=== PATIENT | female | born 1980 | race Caucasian/White ===

== ENCOUNTER → 2019-01-11 | Outpatient (CLI) | payer OTHER ==
--- NOTE | 2019-01-11 08:59 | MM ---
Reason for exam: screening (asymptomatic). Baseline mammogram. History: Patient is nulliparous. Family history of breast cancer in maternal grandmother at age 39, breast cancer in mother at age 40, and breast cancer in sister at age 39. Took hormonal contraceptives beginning at age 22. Physical Findings: Nurse did not find any significant physical abnormalities on exam. MG 3D Screening Mammo W/Cad Bilateral CC and MLO view(s) were taken. The breast tissue is heterogeneously dense. This may lower the sensitivity of mammography. There is an 8mm group of calcifications in the lower outer quadrant at middle depth and right calcifications in the central upper and central lower breast. These results were verbally communicated with the patient and result sheet given to the patient on 01/11/19. ASSESSMENT: Incomplete: need additional imaging evaluation, BI-RAD 0 RECOMMENDATION: Special view mammogram of both breasts.
--- NOTE | 2019-01-11 09:08 | MM ---
Reason for exam: additional evaluation requested from abnormal screening. History: Patient is nulliparous. Family history of breast cancer in maternal grandmother at age 39, breast cancer in mother at age 40, and breast cancer in sister at age 39. Took hormonal contraceptives beginning at age 22. Physical Findings: Breast exam preformed at baseline screening. MG 3D Work Up W/Cad DEE Bilateral CC with magnification and ML with magnification view(s) were taken. The breast tissue is heterogeneously dense. This may lower the sensitivity of mammography. There are heterogenous left upper outer quadrant calcifications measuring 8mm that are indeterminate. Surgical biopsy recommended as these are just deep to the skin. Right calcifications appear as rounded, possible fat necrosis on upper outer quadrant and rounded in the central lower right breast. 6 month follow up for both right groups. These results were verbally communicated with the patient and result sheet given to the patient on 01/11/19. ASSESSMENT: Suspicious, BI-RAD 4 RECOMMENDATION: Surgical consultation and localization and excision of the right breast. Called Dr. Keith with mammographic findings and has scheduled an appointment for the patient for 02/01/19 at 12:[address] Joyce. PRELIMINARY REPORT CALLED AND FAXED TO DR. JOYCE ON 01/11/19.
== END | disposition home or self-care (01) ==
LOC: RADMAMWWP 06:55
PROVIDERS: ATTEND Obstetrics & Gynecology
DX: Z12.31 Encounter for screening mammogram for malignant neoplasm of breast (principal); R92.8 Other abnormal and inconclusive findings on diagnostic imaging of breast; Z80.3 Family history of malignant neoplasm of breast
CPT/HCPCS: 77062; 77063; 77066; 77067

== ENCOUNTER → 2019-02-01 | Outpatient (CLI) | payer OTHER ==
[2019-02-01 12:20] VITALS: BP 147/93; PULSE 64; RESP 16; TEMP 98.2; BMI 24.5
--- NOTE | 2019-02-01 12:49 | P.GSHP ---
History of Present Illness H&P Date: 02/01/19 Chief Complaint: abnormal mammogram of the left breast Shannan is a 38-year-old white female who underwent a routine baseline screening mammogram on following this mammogram was recommended that bilateral additional views be obtained and additional views there was noted to be an 8 mm group of calcifications in the outer quadrant and middle depth of the left breast and left breast calcifications in the central upper and central lower breast. The left breast calcifications were noted to be heterogeneous and close to the skin these were indeterminant and surgical biopsy was recommended. On the right breast it was felt that these were most likely the possible fat necrosis and six-month follow-up was recommended for both groups of calcification in the right breast. Shannan does not feel any masses or nodules in her breasts. She does not complain any breast pain. She does not have any abnormal nipple discharge. She has no history of any trauma or infection in the breast. The patient drinks coffee throughout the day. The patient does not smoke and she is not exposed to secondhand smoke. She has chocolate occasionally. The patient used to use control pulses night use them for several years. She does not take hormones. Her menstrual periods are regular. In 2003 her mother tested for BRACA and negative, both sisters tested the one that had cancer tested negative for any abnormalities, a second sister without cancer tested positive for PALB2. The patient is being tested for PALB 2 as well. Lula risk model evaluation was run. Patient's 5 year risk of developing breast cancer is 1.2% compared with 0.3% for average 36-year-old Lifetime risk of breast cancer is 31.2% compared with 12.5% risk for average 36-year-old woman Family History: maternal grandmother: 39 breast cancer, of mets. maternal grandfather: multiple myloma paternal grandmother: leukemai paternal grandfather: pancreatic mother: breast cancer at 48 sister: lymphoma as a teenager, breast cancer at 39, doing well father: colon cancer paternal uncle: lung cancer Hormonal History: Menarche: 14 G0 periods regular, started yesterday BCP: used for 5 years, stopped 5 years ago hormones: none Past surgical history: 1. Laparotomy left ovary and fallopian tube removed 2. Lasic eye surgery Medical history: Negative Social history: Smoking: Negative alcohol: Occasional Drugs:none - Constitutional Constitutional: Denies chills, Denies fever - EENT Eyes: denies blurred vision, denies pain Ears: deny: decreased hearing, tinnitus Ears, nose, mouth and throat: Denies headache, Denies sore throat - Breasts Breasts: bilateral: as per HPI - Cardiovascular Cardiovascular: Denies chest pain, Denies shortness of breath - Respiratory Respiratory: Denies cough, Denies 7 - Gastrointestinal Gastrointestinal: Denies abdominal pain, Denies diarrhea, Denies nausea, Denies vomiting - Menstruation Menstruation: Reports period normal - Musculoskeletal Musculoskeletal: Denies myalgias - Integumentary Integumentary: Denies pruritus, Denies rash - Neurological Neurological: Denies numbness, Denies weakness - Psychiatric Psychiatric: Denies anxiety, Denies depression - Endocrine Comment: hypothyroid - Hematologic/Lymphatic Comment: none - Allergic/Immunologic Allergic/Immunologic: Reports as per HPI Past Medical History History of Any Multi-Drug Resistant Organisms: None Reported Smoking Status: Never smoker Medications and Allergies Home Medications Medication Instructions Recorded Confirmed Type Ibuprofen 200 mg PO DAILY PRN 02/01/19 02/01/19 History Levothyroxine Sodium [Synthroid] 100 mcg PO DAILY 02/01/19 02/01/19 History Allergies Allergy/AdvReac Type Severity Reaction Status Date / Time No Known Allergies Allergy Unverified 02/01/19 12:15 Surgical - Exam Vital Signs Temp Pulse Resp BP Pulse Ox 98.2 F 64 16 147/93 100 02/01/19 12:17 02/01/19 12:17 02/01/19 12:17 02/01/19 12:17 02/01/19 12:17 BMI 24.5 - General well developed, well nourished, no distress - Eyes normal ocular movement - ENT no hearing loss, no congestion - Neck no masses, trachea midline - Respiratory normal respiratory effort, clear to auscultation - Cardiovascular Rhythm: regular Heart Sounds: normal: S1, S2 - Abdomen Abdomen: soft, non tender, no guarding, no rigid, no rebound - Integumentary normal turgor - Neurologic no disoriented, no combative - Musculoskeletal normal gait, normal posture - Psychiatric oriented to time, oriented to person, oriented to place, speech is normal, memory intact breast exam: Right breast: Multiple positional examined fibrocystic changes, no dominant masses or nodules of concern Right axilla: No adenopathy of concern Left breast: Multiple positional exam no dominant masses or nodules of concern Left axilla: No adenopathy of concern Results Mammogram results reviewed Assessment and Plan Assessment: Impression: 1. Radiographic abnormality bilateral breast 2. Fibrocystic breast changes 3. Family history of breast cancer 4. Family history of cancer 6. High risk for breast cancer sister with genetic mutation patient presently being tested 7. Hypothyroid Risks and benefits of the procedure discussed with the patient and his is going to be scheduled for the near future. Plan: 1. Needle localization and excisional biopsy of superficial heterogeneous calcifications in the left breast 2. Repeat right breast and left breast mammogram in 6 months time 3. Genetic counseling 4. High risk breast cancer noted on Lula model consider chemoprevention await further recommendation until biopsy of left breast is performed Cc: Dr. Keith, DR. Dover
== END | disposition home or self-care (01) ==
LOC: WWCWWP 11:58
PROVIDERS: ATTEND Surgery
DX: Z53.9 Procedure and treatment not carried out, unspecified reason (principal)

== ENCOUNTER 2019-03-19 08:20 | Day surgery (SDC) | payer OTHER ==
[2019-03-18 12:21] VITALS: BMI 25.0
[~2019-03-19 08:20] MED LIST: DEXAMETHASONE SOD PHOSPHATE 10 MG/ML 1 ML VIAL IV ONE; HEPARIN SODIUM,PORCINE 5,000 UNIT/ML 1 ML VIAL SQ ONE; HYDROmorphone 0.5 MG/0.5 ML SYRINGE IVP PRN; MIDAZOLAM 2 MG/2 ML VIAL IV PRN; Pre Op ABX Message 1 EACH MISC MISCELLANE ONE; SCOPOLAMINE 1.5MG/72HR PATCH TRANSDERM ONE
[2019-03-19] MEDS ORDERED: ALPRAZolam 0.5 MG TAB PO ONE (09:18)
[2019-03-19] MEDS ORDERED: LIDOCAINE 1% 20 ML VIAL (10MG/ML) FOR IV START INTRADERMA ONE (09:34)
[2019-03-19] MEDS: LACTATED RINGERS 1,000 ML IV SCH ×2 (09:36→09:55)
[2019-03-19] MEDS ORDERED: LIDOCAINE 1% INJ 10MG/ML (20 ML MDV) SQ ONE ×4 (10:36→15:03)
[2019-03-19 10:41] VITALS: RESP 16
[2019-03-19] MEDS: ONDANSETRON 4 MG/2 ML VIAL IVP ONE ×2 (11:42→15:42)
[2019-03-19] MEDS ORDERED: PROPOFOL 10 MG/ML 20 ML VIAL IV ONE (13:27)
[2019-03-19] MEDS ORDERED: fentaNYL (PF) 50 MCG/ML 2 ML AMP ONE (13:27)
[2019-03-19] MEDS ORDERED: ePHEDrine SULFATE/0.9% NACL/PF 50 MG/5 ML SYRINGE IV ONE (13:27)
[2019-03-19] MEDS ORDERED: SUCCINYLCHOLINE CHLORIDE 100 MG/5 ML SYR IV ONE (13:27)
[2019-03-19] MEDS ORDERED: MIDAZOLAM 2 MG/2 ML VIAL ONE (13:27)
[2019-03-19] MEDS ORDERED: diphenhydrAMINE 50 MG/ML 1 ML VIAL ONE (13:27)
[2019-03-19] MEDS ORDERED: LIDOCAINE 1% INJ 10MG/ML (20 ML MDV) ONE (13:27)
[2019-03-19] MEDS ORDERED: LACTATED RINGERS 1,000 ML IV ONE (14:12)
--- NOTE | 2019-03-19 15:25 | P.OP ---
Date of Procedure: 03/19/19 Preoperative Diagnosis: Microcalcifications of concern in the left breast Postoperative Diagnosis: Same Procedure(s) Performed: needle localization excisional biopsy of concern left breast Anesthesia: MISSY Surgeon: Maira Joyce Estimated Blood Loss (ml): 10 IV fluids (ml): 1,200 Pathology: other (Breast tissue) Condition: stable Disposition: PACU Indications for Procedure: Microcalcifications of concern in the left breast Operative Findings: Dense breast tissue Description of Procedure: Needle Localization of the area of concern in the left breast was preformed. The patient was brought to the operating room. Following induction of general anesthesia the breast was prepped and draped in a sterile fashion. Periareolar incision was made and carried down to the shaft of the needle. Surrounding tissue was excised. The lesion appeared to be very superficial, the specimen was taken from directly under the skin around the needle. Radiograph of the specimen was performed after the specimen was painted for orientation. The specimen was reviewed with the radiologist and although the area all around the needle was removed, we counld not see with certainly that definite calcificati ons were identified. Therefore additional tissue was obtained surrounding the cavity. This was painted for orientation. Radiograph of the second specimen also did not reveal specific calcifications of concern. At this point it was felt that the procedure should be terminated as certainly the area of concern had been sampled. We will await pathology results. The cavity was well irrigated. Hemostasis was attained using the electrocautery device. Powderized Surgicel was placed. The wound was irrigated. No evidence of bleeding was identified. Titanium clips were placed to alecia the cavity. The deeper tissues were closed using 3-0 Vicryl suture. The skin was closed using 4-0 Monocryl. The patient tolerated the procedure in stable condition. All instrument and sponge counts were correct. Again radiograph of both specimens did not reveal specific calcifications however, radiograph of the specimen certainly revealed that the tissue surrounding the needle was in the location of concern.
--- NOTE | 2019-03-19 15:26 | P.DS ---
Providers Attending physician: Maira Joyce Primary care physician: Mitchel Dover Plan - Discharge Summary Discharge Rx Participant: No New Discharge Prescriptions: No Action Levothyroxine Sodium [Synthroid] 100 mcg PO DAILY Ibuprofen 200 mg PO DAILY PRN PRN Reason: Pain Discharge Medication List Ibuprofen 200 mg PO DAILY PRN 02/01/19 [History] Levothyroxine Sodium [Synthroid] 100 mcg PO DAILY 02/01/19 [History] Follow up Appointment(s)/Referral(s): Maira Joyce MD [STAFF PHYSICIAN] - 1 Week Activity/Diet/Wound Care/Special Instructions: do not drive for [address] if taking narcotic pain medication may shower after 48 hours wear bra at all times Discharge Disposition: HOME SELF-CARE
[2019-03-19 15:32] VITALS: TEMP 97.1
--- NOTE | 2019-03-19 15:59 | MM ---
EXAMINATION TYPE: MG pre op needle loc LT, MG surgical specimen LT DATE OF EXAM: 03/19/2019 COMPARISON: Bilateral mammograms dated 01/11/2019 CLINICAL HISTORY: Superficial left breast calcifications for which needle localization was recommende d. TECHNIQUE: Needle localization with wire placement and surgical excision of area of concern in the le ft breast. FINDINGS: The procedure of needle localization with wire placement and than surgical excision was exp lained to the patient. Benefits, alternatives, and risks were discussed. An informed consent was th en obtained. Preprocedural timeout was performed. The shortest pathway for procedure was chosen. Shortest pathway was lateral medial approach. The ove rlying skin was prepped and draped in usual sterile fashion. 10 cc of 1% lidocaine was used as anesth etic into the skin and subcutaneous tissue up to the level of area of concern. A 5 cm needle was use d. It was placed via a lateral to medial approach under mammographic guidance. Subsequent 90 degree s mammogram show the needle to be in satisfactory position relative to the targeted area. At this po int, wire was placed and the needle was withdrawn. The wire was fixed to patient's skin. Images wer e marked for surgeon. The patient tolerated the procedure well without any immediate complication. The patient was kept in the radiology department for short stay after the procedure and then taken to surgery for surgical e xcision. Targeted calcifications are only questionably present within the specimen and wire are iden tified in specimen mammogram. This was discussed with the surgeon at approximately 1440 p.m. The pat ient was kept in hospital for short stay after the procedure and then discharged home in stable condi tion. IMPRESSION: Uncomplicated needle localization with wire placement and surgical excision of suspicious group of calcifications in the left breast, full pathology results to follow. Calcifications are onl y questionably present in the specimen radiograph.
[2019-03-19 16:25] VITALS: BP 113/73; PULSE 85
--- NOTE | 2019-03-22 12:54 | P.PN ---
Progress Note - Text Chief complaint: Abnormal mammogram of the left breast Shannan is a 38-year-old white female who underwent a routine baseline screening ma mmogram on following this mammogram was recommended that bilateral additional views be obtained and additional views there was noted to be an 8 mm group of calcifications in the outer quadrant and middle depth of the left breast and right breast calcifications in the upper outer and central lower breast. The left breast calcifications were noted to be heterogeneous and close to the skin these were indeterminant and surgical biopsy was recommended. On the right breast it was felt that these were most likely the possible fat necrosis and six-month follow-up was recommended for both groups of calcification in the right breast. Shannan does not feel any masses or nodules in her breasts. She does not complain any breast pain. She does not have any abnormal nipple discharge. She has no history of any trauma or infection in the breast. The patient drinks coffee throughout the day. The patient does not smoke and she is not exposed to secondhand smoke. She has chocolate occasionally. The patient used to use control pulses night use them for several years. She does not take hormones. Her menstrual periods are regular. In 2003 her mother tested for BRACA and negative, both sisters tested the one that had cancer tested negative for any abnormalities, a second sister without cancer tested positive for PALB2. The patient is being tested for PALB 2 as well. Lula risk model evaluation was run. Patient's 5 year risk of developing breast cancer is 1.2% compared with 0.3% for average 36-year-old Lifetime risk of breast cancer is 31.2% compared with 12.5% risk for average 36-year-old woman Family History: maternal grandmother: 39 breast cancer, of mets. maternal grandfather: multiple myloma paternal grandmother: leukemai paternal grandfather: pancreatic mother: breast cancer at 48 sister: lymphoma as a teenager, breast cancer at 39, doing well father: colon cancer paternal uncle: lung cancer Hormonal History: Menarche: 14 G0 periods regular, started yesterday BCP: used for 5 years, stopped 5 years ago hormones: none Past surgical history: 1. Laparotomy left ovary and fallopian tube removed 2. Lasic eye surgery Medical history: Negative Social history: Smoking: Negative alcohol: Occasional Drugs:none - Constitutional Constitutional: Denies chills, Denies fever - EENT Eyes: denies blurred vision, denies pain Ears: deny: decreased hearing, tinnitus Ears, nose, mouth and throat: Denies headache, Denies sore throat - Breasts Breasts: bilateral: as per HPI - Cardiovascular Cardiovascular: Denies chest pain, Denies shortness of breath - Respiratory Respiratory: Denies cough, Denies 7 - Gastrointestinal Gastrointestinal: Denies abdominal pain, Denies diarrhea, Denies nausea, Denies vomiting - Menstruation Menstruation: Reports period normal - Musculoskeletal Musculoskeletal: Denies myalgias - Integumentary Integumentary: Denies pruritus, Denies rash - Neurological Neurological: Denies numbness, Denies weakness - Psychiatric Psychiatric: Denies anxiety, Denies depression - Endocrine Comment: hypothyroid - Hematologic/Lymphatic Comment: none - Allergic/Immunologic Allergic/Immunologic: Reports as per HPI Past Medical History History of Any Multi-Drug Resistant Organisms: None Reported Smoking Status: Never smoker Medications and Allergies Home Medications Medication Instructions Recorded Confirmed Type Ibuprofen 200 mg PO DAILY PRN 02/01/19 02/01/19 History Levothyroxine Sodium [Synthroid] 100 mcg PO DAILY 02/01/19 02/01/19 History Allergies Allergy/AdvReac Type Severity Reaction Status Date / Time No Known Allergies Allergy Unverified 02/01/19 12:15 Surgical - Exam Vital Signs BMI 24.5 - General well developed, well nourished, no distress - Eyes normal ocular movement - ENT no hearing loss, no congestion - Neck no masses, trachea midline - Respiratory normal respiratory effort, clear to auscultation - Cardiovascular Rhythm: regular Heart Sounds: normal: S1, S2 - Abdomen Abdomen: soft, non tender, no guarding, no rigid, no rebound - Integumentary normal turgor - Neurologic no disoriented, no combative - Musculoskeletal normal gait, normal posture - Psychiatric oriented to time, oriented to person, oriented to place, speech is normal, m chloe intact breast exam: Right breast: Multiple positional examined fibrocystic changes, no dominant masses or nodules of concern Right axilla: No adenopathy of concern Left breast: Multiple positional exam no dominant masses or nodules of concern Left axilla: No adenopathy of concern Results Mammogram results reviewed Assessment and Plan Assessment: Impression: 1. Radiographic abnormality bilateral breast 2. Fibrocystic breast changes 3. Family history of breast cancer 4. Family history of cancer 6. High risk for breast cancer sister with genetic mutation patient presently being tested 7. Hypothyroid Risks and benefits of the procedure discussed with the patient and his is going to be scheduled for the near future. Plan: 1. Needle localization and excisional biopsy of superficial heterogeneous calcifications in the left breast 2. Repeat right breast and left breast mammogram in 6 months time 3. Genetic counseling 4. High risk breast cancer noted on Lula model consider chemoprevention await further recommendation until biopsy of left breast is performed Cc: Dr. Keith, DR. Dover
== END 2019-03-19 17:16 | disposition home or self-care (01) ==
LOC: OR 08:20
PROVIDERS: ATTEND Surgery
DX: N62 Hypertrophy of breast (principal); N60.82 Other benign mammary dysplasias of left breast; N60.12 Diffuse cystic mastopathy of left breast; R92.0 Mammographic microcalcification found on diagnostic imaging of breast; J45.909 Unspecified asthma, uncomplicated; E07.9 Disorder of thyroid, unspecified; Z79.890 Hormone replacement therapy
CPT/HCPCS: 19125; 81025; 88307; 76098; 19281; J2250; J1200; J1644; J1100; J2405; J2001; J3010; J0330; J2704; J1170

== ENCOUNTER → 2019-04-05 | Outpatient (CLI) | payer OTHER ==
[2019-04-05 16:24] VITALS: BP 126/87; PULSE 79; RESP 18; TEMP 97.9
--- NOTE | 2019-04-05 16:27 | P.PN ---
Subjective Progress Note Date: 04/05/19 Principal diagnosis: post op needle localization excision left breast Shannan is a 38-year-old white female status post needle local excisional biopsy on [id number] for microcalcifications in the left breast. The specimen did not reveal the microcalcifications. Pathology revealed proliferative fibrocystic changes including focal complex sclerosing lesion/radial scar with usual type ductal hyperplasia, fibrosis, cyst, and apocrine metaplasia. I have called the pathologist and they did not note calcifications in the specimen. I have discussed the case with radiology and there is a question as the calcifications are very superficial as to whether they may actually be in the skin. The patient postprocedure developed some erythema at approximately 48 hours which extended up to the area of the chest but resolved. No complaints at this time. Physical exam: Incision clean and dry Lungs: Clear Heart: Regular rate and rhythm Impression: 1. Patient status post needle local excisional biopsy left breast for microcalcifications uncertain as to whether the area of concern was adequately sampled as microcalcifications were not seen and the radiographs specimen nor in the pathology specimen 2. Strong family history of cancer Plan: 1. Repeat left breast mammogram in 3 months with appointment to follow for residual microcalcifications 2. Genetic testing patient is going to be seen later this month she did have PALB testing and was negative CC: DR. Dover
== END ==
LOC: WWCWWP 16:09
PROVIDERS: ATTEND Surgery
DX: Z53.9 Procedure and treatment not carried out, unspecified reason (principal)

== ENCOUNTER → 2019-05-30 | Outpatient (CLI) | payer OTHER ==
[2019-05-30 16:43] VITALS: BP 132/81; PULSE 55; RESP 16; TEMP 97.9
--- NOTE | 2019-05-30 17:00 | P.PN ---
Duane Campbell is a 38-year-old white female status post needle local excisional biopsy on [id number] for microcalcifications in the left breast. The specimen did not reveal the microcalcifications. Pathology revealed proliferative fibrocystic changes including focal complex sclerosing lesion/radial scar with usual type ductal hyperplasia, fibrosis, cyst, and apocrine metaplasia. I have called the pathologist and they did not note calcifications in the specimen. I have discussed the case with radiology and there is a question as the calcifications are very superficial as to whether they may actually be in the skin. The patient postprocedure developed some erythema at approximately 48 hours which extended up to the area of the chest but since resolved. The patient approximately 2 weeks ago states that she noted a area of nodularity in the contralateral/right breast. She is uncertain as to why this area may feel different. No nipple discharge or skin changes. Objective - Vital Signs Vital signs: Vital Signs Temp 97.9 F 05/30/19 16:40 Pulse 55 L 05/30/19 16:40 Resp 16 05/30/19 16:40 BP 132/81 05/30/19 16:40 Pulse Ox 100 05/30/19 16:40 Intake & Output 05/29/19 05/30/19 05/30/19 18:59 06:59 18:59 Weight 65.771 kg - Exam BMI 24.1 - Constitutional General appearance: Present: average body habitus - EENT Eyes: Present: EOMI ENT: Present: hearing grossly normal - Neck Neck: Present: normal ROM - Respiratory Respiratory: bilateral: CTA - Cardiovascular Rhythm: regular Heart sounds: normal: S1, S2 - Integumentary Integumentary: Present: normal turgor - Musculoskeletal Musculoskeletal: Present: gait normal - Psychiatric Psychiatric: Present: A&O x's 3, appropriate affect, intact judgment & insight - Additional findings Additional findings: Breast examination/right breast: Right breast: Multi-positional exam no dominant masses or nodules of concern, fibrocystic changes, particularly attention to the patient is area of concern does not reveal any dominant mass or nodule of concern Right axilla: No adenopathy of concern Inspection: No skin lesions of concern Assessment and Plan Assessment: Impression/Plan: 1. Fibrocystic breast changes 2. Patient had a left breast biopsy done for microcalcifications uncertain as to whether these were adequately sampled as they were not seen in pathology radiology specimens patient is going to have repeat left breast mammogram done in June with physician exam at that time 3. We'll follow her for exam of both breast in June Time with Patient: Less than 30
== END | disposition home or self-care (01) ==
LOC: WWCWWP 16:17
PROVIDERS: ATTEND Surgery
DX: Z53.9 Procedure and treatment not carried out, unspecified reason (principal)

== ENCOUNTER → 2019-07-08 | Outpatient (CLI) | payer OTHER ==
--- NOTE | 2019-07-08 10:11 | MM ---
Reason for exam: follow-up at short interval from prior study. Last mammogram was performed 6 months ago. History: Patient is nulliparous. Family history of breast cancer in maternal grandmother at age 39, breast cancer in mother at age 40, and breast cancer in sister at age 39. Benign MG pre op needle loc LT of the left breast, March 19, 2019. Took hormonal contraceptives beginning at age 22. Physical Findings: Nurse did not find any significant physical abnormalities on exam. MG 3D Diag Mammo W/Cad DEE Bilateral CC, MLO, ML with magnification, and CC with magnification view(s) were taken. ML view(s) were taken of the left breast. Prior study comparison: January 11, 2019, bilateral MG 3d work up w/cad DEE. January 11, 2019, bilateral MG 3d screening mammo w/cad. The breast tissue is heterogeneously dense. This may lower the sensitivity of mammography. The right upper outer quadrant calcifications at middle depth again appear rounded on CC and likely represent developing fat necrosis. Magnifications views on the left demonstrate no residual calcifications at the original left upper outer quadrant anterior depth site of concern for which needle localization was performed. Few scattered left calcifications are seen, benign. Left upper outer quadrant focal asymmetry next to the surgical site resolves on additional magnification views and lateral. These results were verbally communicated with the patient and result sheet given to the patient on 07/08/19. ASSESSMENT: Probably benign, BI-RAD 3 RECOMMENDATION: Follow-up diagnostic mammogram of both breasts in 6 months.
== END | disposition home or self-care (01) ==
LOC: RADMAMWWP 07:40
PROVIDERS: ATTEND Surgery
DX: R92.8 Other abnormal and inconclusive findings on diagnostic imaging of breast (principal)
CPT/HCPCS: 77062; 77066

== ENCOUNTER → 2019-07-18 | Outpatient (CLI) | payer OTHER ==
[2019-07-18 16:31] VITALS: BP 130/84; PULSE 63; RESP 18; TEMP 98
--- NOTE | 2019-07-18 16:52 | P.PN ---
Subjective Progress Note Date: 07/18/19 Principal diagnosis: Mammographic abnormality bilateral breast BIRADS 3 Shannan is a 38-year-old white female status post needle local excisional biopsy on [id number] for microcalcifications in the left breast. The specimen did not reveal the microcalcifications. Pathology revealed proliferative fibrocystic changes including focal complex sclerosing lesion/radial scar with usual type ductal hyperplasia, fibrosis, cyst, and apocrine metaplasia. I have called the pathologist and they did not note calcifications in the specimen. I have discussed the case with radiology and there is a question as the calcifications are very superficial as to whether they may actually be in the skin. The patient postprocedure developed some erythema at approximately 48 hours which extended up to the area of the chest but since resolved. The patient now states that she noted a area of nodularity in the contralateral/right breast. She is uncertain as to why this area may feel different. No nipple discharge or skin changes. She had bilateral mammograms performed on 3919. This revealed heterogeneously dense breast tissue. Magnification views on the left did not demonstrate any residual calcifications at the original left upper outer quadrant anterior depth site of concern for which needle local had been performed. The patient in the right breast had calcifications at middle depth again which appeared rounded and likely represent fat necrosis. The recommendation was benign thyroid cyst. Follow-up diagnostic mammogram of both breasts in 6 months. Objective - Vital Signs Vital signs: Vital Signs Temp 98.0 F 07/18/19 16:26 Pulse 63 07/18/19 16:26 Resp 18 07/18/19 16:26 BP 130/84 07/18/19 16:26 Pulse Ox 100 07/18/19 16:26 Intake & Output 07/17/19 07/18/19 07/18/19 18:59 06:59 18:59 Weight 63.503 kg - Exam BMI 23.3 - Constitutional General appearance: Present: no acute distress - EENT Eyes: Present: EOMI ENT: Present: hearing grossly normal - Neck Neck: Present: normal ROM - Respiratory Respiratory: bilateral: CTA - Cardiovascular Rhythm: regular Heart sounds: normal: S1, S2 - Gastrointestinal General gastrointestinal: Present: normal bowel sounds, soft - Integumentary Integumentary: Present: normal turgor - Musculoskeletal Musculoskeletal: Present: gait normal - Psychiatric Psychiatric: Present: A&O x's 3, appropriate affect, intact judgment & insight - Additional findings Additional findings: Breast exam: BRA size: 34C Inspection: Well-healed scar left breast no skin changes of concern otherwise Palpation: Right breast: multipositional exam no dominant mass or nodules of concern, the area of concern that the patient has in the right breast appears to be fibroglandular tissue Right axilla: No adenopathy of concern Left breast: Multi-positional exam no dominant masses or nodules of concern Left axilla: No adenopathy of concern Assessment and Plan Assessment: Impression: 1. Bilateral fibrocystic breast changes 2. Mammographic changes bilaterally at 3 bilateral Plan: 1. Bilateral mammogram and physician exam in 6 months CC: Dr. Dover encounter 15 minutes > 50% of time in planing adn counselling Time with Patient: Less than 30
== END | disposition home or self-care (01) ==
LOC: WWCWWP 16:20
PROVIDERS: ATTEND Surgery
DX: Z53.9 Procedure and treatment not carried out, unspecified reason (principal)

== ENCOUNTER → 2020-01-07 | Outpatient (CLI) | payer OTHER ==
--- NOTE | 2020-01-07 14:02 | MM ---
Reason for exam: follow-up at short interval from prior study. Last mammogram was performed 6 months ago. History: Patient is nulliparous. Family history of breast cancer in maternal grandmother at age 39, breast cancer in mother at age 40, and breast cancer in sister at age 39. Benign MG pre op needle loc LT of the left breast, March 19, 2019. Took hormonal contraceptives beginning at age 22. Physical Findings: Nurse did not find any significant physical abnormalities on exam. MG 3D Diag Mammo W/Cad DEE Bilateral CC and MLO view(s) were taken. Prior study comparison: July 08, 2019, bilateral MG 3d diag mammo w/cad DEE. January 11, 2019, bilateral MG 3d work up w/cad DEE. The breast tissue is heterogeneously dense. This may lower the sensitivity of mammography. Finding #1: Skin thickening and architectural distortion in the upper outer quadrant, anterior position of the left breast at site of exam, presumed related to prior surgical excision. Finding #2: There are typically benign round, grouped/clustered calcifications in the right breast. Asymmetric breast tissue right medial upper aspect, stable. These results were verbally communicated with the patient and result sheet given to the patient on 01/07/20. ASSESSMENT: Probably benign, BI-RAD 3 RECOMMENDATION: Follow-up diagnostic mammogram of the left breast in 6 months.
== END | disposition home or self-care (01) ==
LOC: RADMAMWWP 13:12
PROVIDERS: ATTEND Surgery
DX: R92.8 Other abnormal and inconclusive findings on diagnostic imaging of breast (principal)
CPT/HCPCS: 77062; 77066

== ENCOUNTER → 2020-01-10 | Outpatient (CLI) | payer OTHER ==
[2020-01-10 14:06] VITALS: BP 114/68; PULSE 66; RESP 18; TEMP 97.9
--- NOTE | 2020-01-10 14:32 | P.PN ---
Subjective Progress Note Date: 01/10/20 Principal diagnosis: abnormal mammogram left breast Shannan is a 38-year-old white female who underwent a routine baseline screening mammogram on 01-07-20 this revealed skin thickening and architectural distortion in the upper outer quadrant of the left breast. In the right breast there were grouped/clustered calcifications and asymmetric breast tissue in the medial upper aspect which was felt to be stable. This was felt to be benign BIRADS 3 and follow-up diagnostic mammogram of the left breast in 6 months was recommended. She had routine screening mammogram in December 2018. following this mammogram was recommended that bilateral additional views be obtained and additional views there was noted to be an 8 mm group of calcifications in the outer quadrant and middle depth of the left breast and left breast calcifications in the central upper and central lower breast. The left breast calcifications were noted to be heterogeneous and close to the skin these were indeterminant and surgical biopsy was recommended. On the right breast it was felt that these were most likely the possible fat necrosis and six-month follow-up was recommended for both groups of calcification in the right breast. She had a needle localization and excisional biopsy an for the microcalcifications in the left breast. The specimen did not reveal the microcalcifications. Pathology revealed proliferative fibrocystic changes including focal complex sclerosing lesion/radial scar with usual type ductal hyperplasia, fibrosis, cyst, and apocrine metaplasia. At that time the case was discussed with radiology as well as pathology and it was recommended she have a repeat mammogram at 6 months. This was repeated on July 072019. This revealed heterogeneously dense breast tissue and mag views on the left did not demonstrate any residual calcifications at the original left upper [place] [id number] has repeat bilateral mammogram and repeat left breast mammogram in 6 months is recommended. Shannan does not feel any masses or nodules in her breasts. She does not complain any breast pain. She does not have any abnormal nipple discharge. She has no history of any trauma or infection in the breast. The patient drinks coffee throughout the day but this is decaff The patient does not smoke and she is not exposed to secondhand smoke. She has chocolate occasionally. BCP: no She does not take hormones. Her menstrual periods are regular. In 2003 her mother tested for BRACA and negative, both sisters tested the one that had cancer tested negative for any abnormalities, a second sister without cancer tested positive for PALB2. The patient is being tested for PALB 2 as well. Lula risk model evaluation was run. Patient's 5 year risk of developing breast cancer is 2.2% compared with 0.4% for average 36-year-old Lifetime risk of breast cancer is 36.8% compared with 12.5% risk for average 36-year-old woman Family History: maternal grandmother: 39 breast cancer, of mets. maternal grandfather: multiple myloma paternal grandmother: leukemia paternal grandfather: pancreatic mother: breast cancer at 48 sister: lymphoma as a teenager, breast cancer at 39, doing well father: colon cancer paternal uncle: lung cancer maternal uncle: kidney cancer mother: skin cancer ? type maternal aunt: basal cell cancer Hormonal History: Menarche: 14 G0 periods regular, started yesterday BCP: used for 5 years, stopped 5 years ago hormones: none Past surgical history: 1. Laparotomy left ovary and fallopian tube removed 2. Lasic eye surgery Medical history: Negative Social history: Smoking: Negative alcohol: Occasional Drugs:none - Constitutional Constitutional: Denies chills, Denies fever - EENT Eyes: denies blurred vision, denies pain Ears: deny: decreased hearing, tinnitus Ears, nose, mouth and throat: Denies headache, Denies sore throat - Breasts Breasts: bilateral: as per HPI - Cardiovascular Cardiovascular: Denies chest pain, Denies shortness of breath - Respiratory Respiratory: Denies cough - Gastrointestinal Gastrointestinal: Denies abdominal pain, Denies diarrhea, Denies nausea, Denies vomiting - Menstruation Menstruation: Reports period normal - Musculoskeletal Musculoskeletal: Denies myalgias - Integumentary Integumentary: Denies pruritus, Denies rash - Neurological Neurological: Denies numbness, Denies weakness - Psychiatric Psychiatric: Denies anxiety, Denies depression - Endocrine Comment: hypothyroid - Hematologic/Lymphatic Comment: none - Allergic/Immunologic Allergic/Immunologic: Reports as per HPI Objective - Vital Signs Vital signs: Vital Signs Temp 97.9 F 01/10/20 14:03 Pulse 66 01/10/20 14:03 Resp 18 01/10/20 14:03 BP 114/68 01/10/20 14:03 Pulse Ox 100 01/10/20 14:03 Intake & Output 09/02/1701/10/20 01/10/20 18:59 06:59 18:59 Weight 68.039 kg - Exam BMI 25 - Constitutional General appearance: Present: average body habitus - EENT Eyes: Present: EOMI ENT: Present: hearing grossly normal - Neck Neck: Present: normal ROM - Respiratory Respiratory: bilateral: CTA - Cardiovascular Rhythm: regular Heart sounds: normal: S1, S2 - Gastrointestinal General gastrointestinal: Present: normal bowel sounds, soft - Integumentary Integumentary: Present: normal turgor - Musculoskeletal Musculoskeletal: Present: gait normal - Psychiatric Psychiatric: Present: A&O x's 3, appropriate affect, intact judgment & insight - Additional findings Additional findings: breast exam: BRA 34C inspection: grade 2/3 ptosis on the right, left grade 1/2 ptosis well-healed scar Palpation: Right breast: Multi-positional exam no dominant masses or nodules of concern, fibrocystic changes Right axilla: No adenopathy of concern Left breast: Multi-positional exam no dominant masses or nodules of concern, well-healed scar fibrocystic changes Left axilla: No adenopathy of concern Assessment and Plan Assessment: Impression: 1. Radiographic skin thickening and architectural distortion upper outer quadrant of the left breast/repeat left breast mammogram in 6 months 2. Fibrocystic breast changes 3. Increased risk for breast cancer via care risk analysis 4. Family history of breast cancer Plan: 1. Repeat left breast mammogram 6 months with physician exam 2. Patient to call sooner if any questions or concerns 3. Patient given the option of seeing medical oncology for chemo-prevention of breast cancer and she has declined Cc: encounter 25 minutes, > 50% of time in planning and counselling
== END | disposition home or self-care (01) ==
LOC: WWCWWP 13:39
PROVIDERS: ATTEND Surgery
DX: Z53.9 Procedure and treatment not carried out, unspecified reason (principal)

== ENCOUNTER → 2020-07-07 | Outpatient (CLI) | payer OTHER ==
--- NOTE | 2020-07-07 09:01 | MM ---
Reason for exam: follow-up at short interval from prior study. Last mammogram was performed 6 months ago. History: Patient is nulliparous. Family history of breast cancer in maternal grandmother at age 39, breast cancer in mother at age 40, and breast cancer in sister at age 39. Benign MG pre op needle loc LT of the left breast, March 19, 2019. Took hormonal contraceptives beginning at age 22. Physical Findings: Nurse did not find any significant physical abnormalities on exam. MG 3D Diag Mammo W/Cad LT CC and MLO view(s) were taken of the left breast. Prior study comparison: January 07, 2020, bilateral MG 3d diag mammo w/cad DEE. July 08, 2019, bilateral MG 3d diag mammo w/cad DEE. The breast tissue is heterogeneously dense. This may lower the sensitivity of mammography. Finding: There is stable skin thickening and architectural distortion in the upper outer quadrant of the left breast. There is a oval, obscured lesion anterior outer aspect, increased in size. These results were verbally communicated with the patient and result sheet given to the patient on 07/07/20. ASSESSMENT: Incomplete: need additional imaging evaluation, BI-RAD 0 RECOMMENDATION: Ultrasound of the left breast.
--- NOTE | 2020-07-07 09:03 | USB ---
Reason for exam: additional evaluation requested from abnormal screening. History: Patient is nulliparous. Family history of breast cancer in maternal grandmother at age 39, breast cancer in mother at age 40, and breast cancer in sister at age 39. Benign MG pre op needle loc LT of the left breast, March 19, 2019. Took hormonal contraceptives beginning at age 22. US Breast Limited LT Left limited breast ultrasound including focal area of concern, retroareolar and axilla demonstrates no cystic or solid lesion seen. Lateral to nipple tubular dense versus scar tissue. These results were verbally communicated with the patient and result sheet given to the patient on 07/07/20. ASSESSMENT: Benign, BI-RAD 2 RECOMMENDATION: Routine screening mammogram of both breasts in 6 months. Back on schedule.
== END ==
LOC: RADMAMWWP 07:43
PROVIDERS: ATTEND Surgery
DX: R92.8 Other abnormal and inconclusive findings on diagnostic imaging of breast (principal); Z80.3 Family history of malignant neoplasm of breast
CPT/HCPCS: 77061; 77065

== ENCOUNTER → 2020-07-17 | Outpatient (CLI) | payer OTHER ==
[2020-07-17 09:56] VITALS: BP 113/73; PULSE 69; RESP 18; TEMP 98.1
--- NOTE | 2020-07-17 10:23 | P.PN ---
Subjective Progress Note Date: 07/17/20 Principal diagnosis: High risk breast cancer/screening/prior abnormal mammogram/6 month follow-up mammogram Shannan is a 39-year-old white female who underwent a routine baseline screening mammogram on 01-07-20 this revealed skin thickening and architectural distortion in the upper outer quadrant of the left breast. In the right breast there were grouped/clustered calcifications and asymmetric breast tissue in the medial upper aspect which was felt to be stable. This was felt to be benign BIRADS 3 and follow-up diagnostic mammogram of the left breast in 6 months was recommended. She had routine screening mammogram in December 2018. following this mammogram was recommended that bilateral additional views be obtained and additional views there was noted to be an 8 mm group of calcifications in the outer quadrant and middle depth of the left breast and left breast calcifications in the central upper and central lower breast. The left breast calcifications were noted to be heterogeneous and close to the skin these were indeterminant and surgical biopsy was recommended. On the right breast it was felt that these were most likely the possible fat necrosis and six-month follow-up was recommended for both groups of calcification in the right breast. She had a needle localization and excisional biopsy an for the microcalcifications in the left breast. The specimen did not reveal the microcalcifications. Pathology revealed proliferative fibrocystic changes including focal complex sclerosing lesion/radial scar with usual type ductal hyperplasia, fibrosis, cyst, and apocrine metaplasia. At that time the case was discussed with radiology as well as pathology and it was recommended she have a repeat mammogram at 6 months. This was repeated on July 072019. This revealed heterogeneously dense breast tissue and mag views on the left did not demonstrate any residual calcifications at the original left upper outer quadrant site. [place] on [address] had repeat bilateral mammogram and repeat left breast mammogram in 6 months is recommended. Her repeat left breast mammogram and ultrasou were done on 07-07-20. These were benign BIRAD 2 and routine screening of both breast in 6 months recommended. Shannan does not feel any masses or nodules in her breasts. She does not complain any breast pain. She does not have any abnormal nipple discharge. She has no history of any trauma or infection in the breast. The patient drinks coffee throughout the day but this is decaff The patient does not smoke and she is not exposed to secondhand smoke. She has chocolate occasionally. BCP: no She does not take hormones. Her menstrual periods are regular. Patient is a vegetarian and eats soy twice a week In 2003 her mother tested for BRACA and negative, both sisters tested the one that had cancer tested negative for any abnormalities, a second sister without cancer tested positive for PALB2. The patient is being tested for PALB 2 as well, she is negative. Lula risk model evaluation was run. Patient's 5 year risk of developing breast cancer is 2.2% compared with 0.4% for average 36-year-old Lifetime risk of breast cancer is 36.8% compared with 12.5% risk for average 36-year-old woman Family History: maternal grandmother: 39 breast cancer, of mets. maternal grandfather: multiple myloma paternal grandmother: leukemia paternal grandfather: pancreatic mother: breast cancer at 48 sister: lymphoma as a teenager, breast cancer at 39, doing well father: colon cancer paternal uncle: lung cancer maternal uncle: kidney cancer mother: skin cancer ? type maternal aunt: basal cell cancer Hormonal History: Menarche: 14 G0 periods regular, started yesterday BCP: used for 5 years, stopped 5 years ago hormones: none Past surgical history: 1. Laparotomy left ovary and fallopian tube removed 2. Lasic eye surgery Medical history: Negative Social history: Smoking: Negative alcohol: Occasional Drugs:none - Constitutional Constitutional: Denies chills, Denies fever - EENT Eyes: denies blurred vision, denies pain Ears: deny: decreased hearing, tinnitus Ears, nose, mouth and throat: Denies headache, Denies sore throat - Breasts Breasts: bilateral: as per HPI - Cardiovascular Cardiovascular: Denies chest pain, Denies shortness of breath - Respiratory Respiratory: Denies cough - Gastrointestinal Gastrointestinal: Denies abdominal pain, Denies diarrhea, Denies nausea, Denies vomiting - Menstruation Menstruation: Reports period normal - Musculoskeletal Musculoskeletal: Denies myalgias - Integumentary Integumentary: Denies pruritus, Denies rash - Neurological Neurological: Denies numbness, Denies weakness - Psychiatric Psychiatric: Denies anxiety, Denies depression - Endocrine Comment: hypothyroid - Hematologic/Lymphatic Comment: none - Allergic/Immunologic Allergic/Immunologic: Reports as per HPI Objective - Vital Signs Vital signs: Vital Signs Temp 98.1 F 03/19/21 09:52 Pulse 69 07/17/20 09:52 Resp 18 07/17/20 09:52 BP 113/73 07/17/20 09:52 Pulse Ox 93 L 07/17/20 09:52 Intake & Output 07/16/20 07/17/20 07/17/20 18:59 06:59 18:59 Weight 70.307 kg - Exam BMI 25.8 - Constitutional General appearance: Present: average body habitus - EENT Eyes: Present: EOMI ENT: Present: hearing grossly normal - Neck Neck: Present: normal ROM - Respiratory Respiratory: bilateral: CTA - Cardiovascular Rhythm: regular Heart sounds: normal: S1, S2 - Gastrointestinal General gastrointestinal: Present: soft - Integumentary Integumentary: Present: normal turgor - Musculoskeletal Musculoskeletal: Present: gait normal - Psychiatric Psychiatric: Present: A&O x's 3, appropriate affect, intact judgment & insight - Additional findings Additional findings: breast exam: BRA: 36C inspection: Grade 2 ptosis bilateral Palpation: Right breast: Multiple positional exam dense fibrocystic changes no dominant masses or nodules of concern Right axilla: No adenopathy of concern Left breast: Multiple positional exam dense fibrocystic changes, no dominant masses or nodules of concern, well-healed scar from prior surgery Left axilla: No adenopathy of concern Assessment and Plan Assessment: Impression: 1. Abnormal prior left breast mammogram repeat left breast mammogram and u ltrasound from 3921 benign BIRADS 2 2. Strong family history of breast cancer close surveillance patient's genetic testing was negative 3. Fibrocystic breast changes 4. Lula risk model increased risk for breast cancer Plan: 1. Repeat bilateral mammogram in 6 months with physician exam at that time 2. Patient takes soy products we have discussed this and she will decrease this as it is a plant final estrogen 3. We have discussed the option of chemoprevention in the past she is currently interested CC: Dr. Dover encounter 25 minutes, time spent in examination review of records and ex amination
== END ==
LOC: WWCWWP 09:44
PROVIDERS: ATTEND Surgery
DX: R92.8 Other abnormal and inconclusive findings on diagnostic imaging of breast (principal); N60.11 Diffuse cystic mastopathy of right breast; N60.12 Diffuse cystic mastopathy of left breast; Z80.3 Family history of malignant neoplasm of breast

== ENCOUNTER → 2021-01-11 | Outpatient (CLI) | payer OTHER ==
--- NOTE | 2021-01-13 09:33 | MM ---
Reason for exam: screening (asymptomatic). Last mammogram was performed 6 months ago. History: Patient is nulliparous. Family history of breast cancer in maternal grandmother at age 39, breast cancer in mother at age 40, and breast cancer in sister at age 39. Benign MG pre op needle loc LT of the left breast, March 19, 2019. Took hormonal contraceptives beginning at age 22. Physical Findings: A clinical breast exam by your physician is recommended on an annual basis and results should be correlated with mammographic findings. MG 3D Screening Mammo W/Cad Bilateral CC and MLO view(s) were taken. Prior study comparison: July 07, 2020, left breast MG 3d diag mammo w/cad LT. January 07, 2020, bilateral MG 3d diag mammo w/cad DEE. July 08, 2019, bilateral MG 3d diag mammo w/cad DEE. January 11, 2019, bilateral MG 3d screening mammo w/cad. January 11, 2019, bilateral MG 3d work up w/cad DEE. The breast tissue is heterogeneously dense. This may lower the sensitivity of mammography. There is chronic nodularity in the right breast. Post surgical change left breast. No significant changes when compared with prior studies. ASSESSMENT: Benign, BI-RAD 2 RECOMMENDATION: Routine screening mammogram of both breasts in 1 year. Patient should continue monthly self breast exams. A negative report should not preclude additional follow up of suspicious palpable abnormalities.
== END | disposition home or self-care (01) ==
LOC: RADMAMWWP 16:35
PROVIDERS: ATTEND Surgery
DX: Z12.31 Encounter for screening mammogram for malignant neoplasm of breast (principal); Z80.3 Family history of malignant neoplasm of breast
CPT/HCPCS: 77063; 77067

== ENCOUNTER → 2021-01-15 | Outpatient (CLI) | payer OTHER ==
[2021-01-15 14:42] VITALS: BP 116/68; PULSE 71; RESP 16; TEMP 98.3
--- NOTE | 2021-01-15 15:18 | P.PN ---
Subjective Progress Note Date: 01/15/21 Principal diagnosis: screening for breast disease High risk breast cancer/screening/prior abnormal mammogram Shannan is a 39-year-old white female who underwent a routine baseline screening mammogram on 01-07-20 this revealed skin thickening and architectural distortion in the upper outer quadrant of the left breast. In the right breast there were grouped/clustered calcifications and asymmetric breast tissue in the medial upper aspect which was felt to be stable. This was felt to be benign BIRADS 3 and follow-up diagnostic mammogram of the left breast in 6 months was recommended. She had routine screening mammogram in December 2018. following this mammogram was recommended that bilateral additional views be obtained and additional views there was noted to be an 8 mm group of calcifications in the outer quadrant and middle depth of the left breast and left breast calcifications in the central upper and central lower breast. The left breast calcifications were noted to be heterogeneous and close to the skin these were indeterminant and surgical biopsy was recommended. On the right breast it was felt that these were most likely the possible fat necrosis and six-month follow-up was recommended for both groups of calcification in the right breast. She had a needle localization and excisional biopsy an for the microcalcifications in the left breast. The specimen did not reveal the microcalcifications. Pathology revealed proliferative fibrocystic changes including focal complex sclerosing lesion/radial scar with usual type ductal hyperplasia, fibrosis, cyst, and apocrine metaplasia. At that time the case was discussed with radiology as well as pathology and it was recommended she have a repeat mammogram at 6 months. This was repeated on July 072019. This revealed heterogeneously dense breast tissue and mag views on the left did not demonstrate any residual calcifications at the original left upper outer quadrant site. [place] [address] had repeat bilateral mammogram and repeat left breast mammogram in 6 months is recommended. Her repeat left breast mammogram and ultrasoud were done on 07-07-20. These were benign BIRAD 2 and routine screening of both breast in 6 months recommended. She had a bilateral mammgram on 01-11-21. This was benign BIRAD 2. Shannan does not feel any masses or nodules in her breasts. She does not complain any breast pain. She does not have any abnormal nipple discharge. She has no history of any trauma or infection in the breast. The patient drinks coffee throughout the day but this is decaff The patient does not smoke and she is not exposed to secondhand smoke. She has chocolate occasionally. BCP: no She does not take hormones. Her menstrual periods are regular. Patient is a vegetarian and eats soy twice a week In 2003 her mother tested for BRACA and negative, both sisters tested the one that had cancer tested negative for any abnormalities, a second sister without cancer tested positive for PALB2. The patient is being tested for PALB 2 as well, she is negative. Lula risk model evaluation was run. Patient's 5 year risk of developing breast cancer is 2.2% compared with 0.4% for average 36-year-old Lifetime risk of breast cancer is 36.8% compared with 12.5% risk for average 36-year-old woman We discussed chemoprevention at this time she has declined. Family History: maternal grandmother: 39 breast cancer, of mets. maternal grandfather: multiple myloma paternal grandmother: leukemia paternal grandfather: pancreatic mother: breast cancer at 48 sister: lymphoma as a teenager, breast cancer at 39, doing well father: colon cancer paternal uncle: lung cancer maternal uncle: kidney cancer mother: skin cancer basal cell type maternal aunt: basal cell cancer Hormonal History: Menarche: 14 G0 periods regular, started yesterday BCP: used for 5 years, stopped 5 years ago hormones: none Past surgical history: 1. Laparotomy left ovary and fallopian tube removed 2. Lasic eye surgery Medical history: Negative Social history: Smoking: Negative alcohol: Occasional Drugs:none - Constitutional Constitutional: Denies chills, Denies fever - EENT Eyes: denies blurred vision, denies pain Ears: deny: decreased hearing, tinnitus Ears, nose, mouth and throat: Denies headache, Denies sore throat - Breasts Breasts: bilateral: as per HPI - Cardiovascular Cardiovascular: Denies chest pain, Denies shortness of breath - Respiratory Respiratory: Denies cough - Gastrointestinal Gastrointestinal: Denies abdominal pain, Denies diarrhea, Denies nausea, Denies vomiting - Menstruation Menstruation: Reports period normal - Musculoskeletal Musculoskeletal: Denies myalgias - Integumentary Integumentary: Denies pruritus, Denies rash - Neurological Neurological: Denies numbness, Denies weakness - Psychiatric Psychiatric: Denies anxiety, Denies depression - Endocrine Comment: hypothyroid - Hematologic/Lymphatic Comment: none - Allergic/Immunologic Allergic/Immunologic: Reports as per HPI Objective - Vital Signs Vital signs: Vital Signs Temp 98.3 F 01/15/21 14:39 Pulse 71 01/15/21 14:39 Resp 16 01/15/21 14:39 BP 116/68 01/15/21 14:39 Pulse Ox 99 01/15/21 14:39 Intake & Output 01/14/21 01/15/21 01/15/21 18:59 06:59 18:59 Weight 77.111 kg - Exam BMI 28.3 - Constitutional General appearance: Present: cooperative - EENT Eyes: Present: EOMI ENT: Present: hearing grossly normal - Neck Neck: Present: normal ROM - Respiratory Respiratory: bilateral: CTA - Cardiovascular Rhythm: regular Heart sounds: normal: S1, S2 - Gastrointestinal General gastrointestinal: Present: soft - Integumentary Integumentary: Present: normal turgor - Musculoskeletal Musculoskeletal: Present: gait normal - Psychiatric Psychiatric: Present: A&O x's 3, appropriate affect, intact judgment & insight - Additional findings Additional findings: Breast Exam: BRA: 34D inspection: bilateral grade 2 ptosis Palpation: Right breast: Multiple positional exam fibrocystic breast changes, no dominant masses or nodules of concern Right axilla: No adenopathy of concern Left breast: Multiple positional exam fibrocystic changes no dominant masses or nodules of concern Left axilla: No adenopathy of concern Assessment and Plan Assessment: Impression: 1. Bilateral fibrocystic breast changes 2. Strong family history of cancer 3. Increased risk of breast cancer via Lula risk evaluation and assessment/patient has declined chemoprevention Plan: 1. Repeat bilateral mammogram in 1 year with physician exam 2. Physician exam in 6 months secondary to high risk, patient will do monthly breast exams and call if anything is noted sooner Cc: Dr. Partida
== END ==
LOC: WWCWWP 14:32
PROVIDERS: ATTEND Surgery
DX: N60.12 Diffuse cystic mastopathy of left breast (principal); N60.11 Diffuse cystic mastopathy of right breast; Z80.3 Family history of malignant neoplasm of breast

== ENCOUNTER → 2021-07-29 | Outpatient (CLI) | payer OTHER ==
[2021-07-29 09:19] VITALS: BP 114/74; PULSE 52; RESP 16; TEMP 98
--- NOTE | 2021-07-29 10:25 | P.PN ---
Subjective Progress Note Date: 07/29/21 Principal diagnosis: high risk breast cancer screening for breast disease High risk breast cancer/screening/prior abnormal mammogram Shannan is a 40-year-old white female who underwent a routine baseline screening mammogram on 01-07-20 this revealed skin thickening and architectural distortion in the upper outer quadrant of the left breast. In the right breast there were grouped/clustered calcifications and asymmetric breast tissue in the medial upper aspect which was felt to be stable. This was felt to be benign BIRADS 3 and follow-up diagnostic mammogram of the left breast in 6 months was recommended. She had routine screening mammogram in December 2018. following this mammogram was recommended that bilateral additional views be obtained and additional views there was noted to be an 8 mm group of calcifications in the outer quadrant and middle depth of the left breast and left breast calcifications in the central upper and central lower breast. The left breast calcifications were noted to be heterogeneous and close to the skin these were indeterminant and surgical biopsy was recommended. On the right breast it was felt that these were most likely the possible fat necrosis and six-month follow-up was recommended for both groups of calcification in the right breast. She had a needle localization and excisional biopsy an for the microcalcifications in the left breast. The specimen did not reveal the microcalcifications. Pathology revealed proliferative fibrocystic changes including focal complex sclerosing lesion/radial scar with usual type ductal hyperplasia, fibrosis, cyst, and apocrine metaplasia. At that time the case was discussed with radiology as well as pathology and it was recommended she have a repeat mammogram at 6 months. This was repeated on July 072019. This revealed heterogeneously dense breast tissue and mag views on the left did not demonstrate any residual calcifications at the original left upper outer quadrant site. [place] on 9819 had repeat bilateral mammogram and repeat left breast mammogram in 6 months is recommended. Her repeat left breast mammogram and ultrasoud were done on 07-07-20. These were benign BIRAD 2 and routine screening of both breast in 6 months recommended. She had a bilateral mammgram on 01-11-21. This was benign BIRAD 2. Shannan does not feel any masses or nodules in her breasts. She does not complain any breast pain. She does not have any abnormal nipple discharge. She has no history of any trauma or infection in the breast. We did notice a change in pigmentation on the right nipple. coffee: 4 cups/day The patient does not smoke and she is not exposed to secondhand smoke. She has chocolate occasionally. BCP: no She does not take hormones. Her menstrual periods are regular. Patient is a vegetarian and eats soy twice a week In 2003 her mother tested for BRACA and negative, both sisters tested the one that had cancer tested negative for any abnormalities, a second sister without cancer tested positive for PALB2. The patient is being tested for PALB 2 as well, she is negative. Lula risk model evaluation was run. Patient's 5 year risk of developing breast cancer is 2.2% compared with 0.4% for average 36-year-old Lifetime risk of breast cancer is 36.8% compared with 12.5% risk for average 36-year-old woman We discussed chemoprevention at this time she has declined. Family History: maternal grandmother: 39 breast cancer, of mets. maternal grandfather: multiple myloma paternal grandmother: leukemia paternal grandfather: pancreatic mother: breast cancer at 48 sister: lymphoma as a teenager, breast cancer at 39, doing well father: colon cancer paternal uncle: lung cancer maternal uncle: kidney cancer mother: skin cancer basal cell type maternal aunt: basal cell cancer Hormonal History: Menarche: 14 G0 periods regular, started yesterday BCP: used for 5 years, stopped 5 years ago hormones: none Past surgical history: 1. Laparotomy left ovary and fallopian tube removed 2. Lasic eye surgery Medical history: Negative Social history: Smoking: Negative alcohol: Occasional Drugs:none - Constitutional Constitutional: Denies chills, Denies fever - EENT Eyes: denies blurred vision, denies pain Ears: deny: decreased hearing, tinnitus Ears, nose, mouth and throat: Denies headache, Denies sore throat - Breasts Breasts: bilateral: as per HPI - Cardiovascular Cardiovascular: Denies chest pain, Denies shortness of breath - Respiratory Respiratory: Denies cough - Gastrointestinal Gastrointestinal: Denies abdominal pain, Denies diarrhea, Denies nausea, Denies vomiting - Menstruation Menstruation: Reports period normal - Musculoskeletal Musculoskeletal: Denies myalgias - Integumentary Integumentary: Denies pruritus, Denies rash - Neurological Neurological: Denies numbness, Denies weakness - Psychiatric Psychiatric: Denies anxiety, Denies depression - Endocrine Comment: hypothyroid - Hematologic/Lymphatic Comment: none Objective - Vital Signs Vital signs: Vital Signs Temp 98.0 F 07/29/21 09:15 Pulse 52 L 07/29/21 09:15 Resp 16 07/29/21 09:15 BP 114/74 07/29/21 09:15 Pulse Ox 100 07/29/21 09:15 - Constitutional General appearance: Present: cooperative - EENT Eyes: Present: EOMI ENT: Present: hearing grossly normal - Neck Neck: Present: normal ROM - Respiratory Respiratory: bilateral: CTA - Cardiovascular Rhythm: regular Heart sounds: normal: S1, S2 - Gastrointestinal General gastrointestinal: Present: soft - Integumentary Integumentary: Present: normal turgor - Musculoskeletal Musculoskeletal: Present: gait normal - Psychiatric Psychiatric: Present: A&O x's 3, appropriate affect, intact judgment & insight - Additional findings Additional findings: Breast Exam: BRA: 34D inspection: Scar left breast from prior surgery, bilateral grade 3 ptosis Preparation: Right breast: Multiple positional exam fibrocystic changes no dominant masses or nodules of concern Right axilla: No adenopathy of concern Left breast: Multiple transitional exam fibrocystic changes no dominant masses or nodules of concern Left axilla: No adenopathy of concern Assessment and Plan Assessment: Impression: Fibrocystic breast changes no discrete dominant masses or nodules of concern which would warrant interventional biopsy Patient due for bilateral mammogram in December 2021 We have discussed the option of progesterone-containing control. At this time the patient has no true contraindication. She understands that if she were to develop a tumor and it were to be progesterone receptor positive was certainly asked that she stop the progesterone at that time. She is going to discuss this with her shellfish shucker. Plan: Repeat bilateral mammogram in December 2021 with physician exam at that time Cc: Dr. Mcintyre,
== END ==
LOC: WWCWWP 08:56
PROVIDERS: ATTEND Surgery
DX: N60.11 Diffuse cystic mastopathy of right breast (principal); N60.12 Diffuse cystic mastopathy of left breast

== ENCOUNTER → 2022-01-13 | Outpatient (CLI) | payer OTHER ==
--- NOTE | 2022-01-14 19:18 | MM ---
Reason for Exam: Screening (asymptomatic). Last screening mammogram was performed 12 month(s) ago. Patient History: Menarche at age 14. Patient has no children. Left ovary removed at age 37. Premenopausal. Hormonal Contraceptives, from age 22 until age 30. 03/19/2019, Benign Core Biopsy on the left side. Maternal grandmother had breast cancer, age 39. Sister had breast cancer, age 39. Mother had breast cancer, age 40. Risk Values: Lula 5 year model risk: 2.8%. NCI Lifetime model risk: 36.5%. Prior Study Comparison: 01/11/2019 Bilateral Screening Mammogram, [facility]. 01/11/2019 Bilateral Diagnostic Mammogram, [facility]. 07/08/2019 Bilateral Diagnostic Mammogram, [facility]. 01/07/2020 Bilateral Diagnostic Mammogram, [facility]. 07/07/2020 Left Diagnostic Mammogram, [facility]. 01/11/2021 Bilateral Screening Mammogram, [facility]. Tissue Density: The breast tissue is heterogeneously dense. This may lower the sensitivity of mammography. Findings: Analyzed By CAD. There is no suspicious group of microcalcifications or new suspicious mass in either breast. Overall Assessment: Negative, BI-RAD 1 Management: Screening Mammogram of both breasts in 1 year. A clinical breast exam by your physician is recommended on an annual basis and results should be correlated with mammographic findings. Electronically signed and approved by: Fernandez Calderón DO
== END | disposition home or self-care (01) ==
LOC: RADMAMWWP 13:58
PROVIDERS: ATTEND Surgery
DX: Z12.31 Encounter for screening mammogram for malignant neoplasm of breast (principal); Z80.3 Family history of malignant neoplasm of breast
CPT/HCPCS: 77063; 77067

== ENCOUNTER → 2022-01-20 | Outpatient (CLI) | payer OTHER ==
[2022-01-20 15:47] VITALS: BP 108/72; PULSE 55; RESP 16; TEMP 97.9
--- NOTE | 2022-01-20 15:58 | P.PN ---
Subjective Progress Note Date: 01/20/22 Principal diagnosis: high risk for breast cancer high risk breast cancer screening for breast disease High risk breast cancer/screening/prior abnormal mammogram Shannan is a 40-year-old white female who underwent a routine baseline screening mammogram on 01-07-20 this revealed skin thickening and architectural distortion in the upper outer quadrant of the left breast. In the right breast there were grouped/clustered calcifications and asymmetric breast tissue in the medial upper aspect which was felt to be stable. This was felt to be benign BIRADS 3 and follow-up diagnostic mammogram of the left breast in 6 months was recommended. She had routine screening mammogram in December 2018. following this mammogram was recommended that bilateral additional views be obtained and additional views there was noted to be an 8 mm group of calcifications in the outer quadrant and middle depth of the left breast and left breast calcifications in the central upper and central lower breast. The left breast calcifications were noted to be heterogeneous and close to the skin these were indeterminant and surgical biopsy was recommended. On the right breast it was felt that these were most likely the possible fat necrosis and six-month follow-up was recommended for both g roups of calcification in the right breast. She had a needle localization and excisional biopsy an 1119-19 for the microcalcifications in the left breast. The specimen did not reveal the micro calcifications. Pathology revealed proliferative fibrocystic changes including focal complex sclerosing lesion/radial scar with usual type ductal hyperplasia, fibrosis, cyst, and apocrine metaplasia. At that time the case was discussed with radiology as well as pathology and it was recommended she have a repeat mammogram at 6 months. This was repeated on July 072019. This revealed heterogeneously dense breast tissue and mag views on the left did not demonstrate any residual calcifications at the original left upper outer quadrant site. [place] on 9819 had repeat bilateral mammogram and repeat left breast mammogram in 6 months is recommended. Her repeat left breast mammogram and ultrasound were done on 07-07-20. These were benign BIRAD 2 and routine screening of both breast in 6 months recommended. She had a bilateral mammgram on 01-11-21. This was benign BIRAD 2. 01-20-22 Shannan does not feel any masses or nodules in her breasts. She does not complain any breast pain. She does not have any abnormal nipple discharge. She has no history of any trauma or infection in the breast. We did notice a change in pigmentation on the right nipple. She had a bilateral mammogram on 01-13-22 which was BIRAD 1. Lula Risk: 5 year 2.8% lifetime risk: 36.5% We have discussed chemoprevention and the patient has declined. We've also discussed greater than 20% lifetime risk that she could alternate MRI with mammogram and she would like to pursue this. coffee: 4 cups/day The patient does not smoke and she is not exposed to secondhand smoke. She has chocolate occasionally. BCP: no She does not take hormones. Her menstrual periods are regular. Patient is a vegetarian and eats soy twice a week In 2003 her mother tested for BRACA and negative, both sisters tested the one that had cancer tested negative for any abnormalities, a second sister without cancer tested positive for PALB2. The patient is being tested for PALB 2 as well, she is negative. Family History: maternal grandmother: 39 breast cancer, of mets. maternal grandfather: multiple myloma paternal grandmother: leukemia paternal grandfather: pancreatic mother: breast cancer at 48 sister: lymphoma as a teenager, breast cancer at 39, doing well father: colon cancer paternal uncle: lung cancer maternal uncle: kidney cancer mother: skin cancer basal cell type maternal aunt: basal cell cancer Hormonal History: Menarche: 14 G0 periods regular, started yesterday BCP: used for 5 years, stopped 5 years ago hormones: none Past surgical history: 1. Laparotomy left ovary and fallopian tube removed 2. Lasic eye surgery Medical history: Negative Social history: Smoking: Negative alcohol: Occasional Drugs:none - Constitutional Constitutional: Denies chills, Denies fever - EENT Eyes: denies blurred vision, denies pain Ears: deny: decreased hearing, tinnitus Ears, nose, mouth and throat: Denies headache, Denies sore throat - Breasts Breasts: bilateral: as per HPI - Cardiovascular Cardiovascular: Denies chest pain, Denies shortness of breath - Respiratory Respiratory: Denies cough - Gastrointestinal Gastrointestinal: Denies abdominal pain, Denies diarrhea, Denies nausea, Denies vomiting - Menstruation Menstruation: Reports period normal - Musculoskeletal Musculoskeletal: Denies myalgias - Integumentary Integumentary: Denies pruritus, Denies rash - Neurological Neurological: Denies numbness, Denies weakness - Psychiatric Psychiatric: Denies anxiety, Denies depression - Endocrine Comment: hypothyroid - Hematologic/Lymphatic Comment: none Objective - Vital Signs Vital signs: Intake & Output 01/19/22 01/20/22 01/20/22 18:59 06:59 18:59 Weight 79.379 kg - Exam BMI: 29.1 - Constitutional General appearance: Present: cooperative - EENT Eyes: Present: EOMI ENT: Present: hearing grossly normal - Neck Neck: Present: normal ROM - Respiratory Respiratory: bilateral: CTA - Cardiovascular Heart sounds: normal: S1, S2 - Integumentary Integumentary: Present: normal turgor - Musculoskeletal Musculoskeletal: Present: gait normal - Psychiatric Psychiatric: Present: A&O x's 3, appropriate affect, intact judgment & insight - Additional findings Additional findings: Breast Exam: BRA: 34DD Inspection: grade 2/3 ptosis Palpation: right breast: Positional exam fibrocystic changes no dominant masses or nodules of concern Right axilla: No adenopathy of concern Left breast: Multi-positional exam fibrocystic changes no dominant masses or nodules of concern Left axilla: No adenopathy of concern Assessment and Plan Assessment: Impression: Macromastia/back pain associated with this Bilateral mammogram [id number] BIRADS 1 Lula model lifetime risk of breast cancer 36.5 Plan: Bilateral mammogram in 1 year We have discussed alternating MRI with mammogram as her lifetime risk is greater than 20%, we will attempt to get an MRI in 6 months with examination at that time Cc: Dr. Mahoney
== END ==
LOC: WWCWWP 15:35
PROVIDERS: ATTEND Surgery
DX: N62 Hypertrophy of breast (principal)

== ENCOUNTER → 2022-07-15 | Outpatient (CLI) | payer OTHER ==
--- NOTE | 2022-07-18 06:59 | BMR ---
EXAMINATION TYPE: MR breast BILAT wo/w con DATE OF EXAM: 07/15/2022 COMPARISON: Prior 3-D screening mammogram January 13, 2022 BI-RADS 1 HISTORY: Left Breast lump near areola, benign excisional biopsy left breast March 2019 complex scl erosing lesion/radial scar. TECHNIQUE: A series of fat and water weighted images in the long and short axis views of both breasts are obtained in conjunction with dynamic contrast MRI with subtraction technique. The patient was i njected with 8.5 mL intravenous Gadavist gadolinium contrast. Three-dimensional and additional post processing imaging is created on independent workstation and reviewed during official interpretation of this study. FINDINGS: Scattered fibroglandular tissue is redemonstrated bilaterally. There is no concerning axill dayana adenopathy seen bilaterally. No concerning focal fluid collection or cystic masses identified. Dy namic postcontrast imaging shows mild background enhancement. With regards to the right breast. There is no pathologic enhancement or enhancing masses that are john ntified. No abnormal skin thickening is seen. The chest wall is intact. With regards to the left breast there is susceptibility artifact from surgical clips and distortion c orresponding to excisional changes in the left breast upper outer aspect. No abnormal skin thickening is seen. No pathologic enhancement or enhancing masses are identified. The chest wall is intact. IMPRESSION: No MRI evidence for invasive malignancy in either breast. BI-RADS 2 benign findings left breast. BI-RADS 1 negative study right breast Recommendation: Management of palpable on Clinical basis. Consider targeted ultrasound to definitivel y exclude lesion at area of clinical or palpable concern. Patient due for bilateral breast mammogram December 2022 to be back on annual schedule.
== END | disposition home or self-care (01) ==
LOC: RADMRIMAIN 08:06
PROVIDERS: ATTEND Surgery
DX: R92.8 Other abnormal and inconclusive findings on diagnostic imaging of breast (principal)
CPT/HCPCS: 77049; A9585

== ENCOUNTER → 2022-07-28 | Outpatient (CLI) | payer OTHER ==
[2022-07-28 16:26] VITALS: BP 118/59; PULSE 68; RESP 17; TEMP 98
--- NOTE | 2022-07-28 16:41 | P.PN ---
Subjective Progress Note Date: 07/28/22 Principal diagnosis: high risk breast cancer high risk breast cancer screening for breast disease High risk breast cancer/screening/prior abnormal mammogram Shannan is a 40-year-old white female who underwent a routine baseline screening mammogram on 01-07-20 this revealed skin thickening and architectural distortion in the upper outer quadrant of the left breast. In the right breast there were grouped/clustered calcifications and asymmetric breast tissue in the medial upper aspect which was felt to be stable. This was felt to be benign BIRADS 3 and follow-up diagnostic mammogram of the left breast in 6 months was recommended. She had routine screening mammogram in December 2018. following this mammogram was recommended that bilateral additional views be obtained and additional views there was noted to be an 8 mm group of calcifications in the outer quadrant and middle depth of the left breast and left breast calcifications in the central upper and central lower breast. The left breast calcifications were noted to be heterogeneous and close to the skin these were indeterminant and surgical biopsy was recommended. On the right breast it was felt that these were most likely the possible fat necrosis and six-month follow-up was recommended for both group s of calcification in the right breast. She had a needle localization and excisional biopsy an 1119-19 for the microcalcifications in the left breast. The specimen did not reveal the microcalcifications. Pathology revealed proliferative fibrocystic changes including focal complex sclerosing lesion/radial scar with usual type ductal hyperplasia, fibrosis, cyst, and apocrine metaplasia. At that time the case was discussed with radiology as well as pathology and it was recommended she have a repeat mammogram at 6 months. This was repeated on July 072019. This revealed heterogeneously dense breast tissue and mag views on the left did not demonstrate any residual calcifications at the original left upper outer quadrant site. [place] [address] had repeat bilateral mammogram and repeat left breast mammogram in 6 months is recommended. Her repeat left breast mammogram and ultrasound were done on 07-07-20. These were benign BIRAD 2 and routine screening of both breast in 6 months recommended. She had a bilateral mammgram on 01-11-21. This was benign BIRAD 2. 01-20-22 Shannan does not feel any masses or nodules in her breasts. She does not complain any breast pain. She does not have any abnormal nipple discharge. She has no history of any trauma or infection in the breast. We did notice a change in pigmentation on the right nipple. She had a bilateral mammogram on 01-13-22 which was BIRAD 1. Lula Risk: 5 year 2.8% lifetime risk: 36.5% We have discussed chemoprevention and the patient has declined. We've also discussed greater than 20% lifetime risk that she could alternate MRI with mammogram and she would like to pursue this. 07-28-22 Is not complaining of any new lumps masses or nodules of concern in either breast. She underwent a bilateral MRI on which did not reveal any lesions of concern in either breast. The patient had genetic testing done approximately 4 years ago and states she was negative. She is going to try to obtain a copy of that report. coffee: 4 cups/day The patient does not smoke and she is not exposed to secondhand smoke. She has chocolate occasionally. BCP: no She does not take hormones. Her menstrual periods are regular. Patient is a vegetarian and eats soy twice a week In 2003 her mother tested for BRACA and negative, both sisters tested the one that had cancer tested negative for any abnormalities, a second sister without cancer tested positive for PALB2. The patient is being tested for PALB 2 as well, she is negative. Family History: maternal grandmother: 39 breast cancer, of mets. maternal grandfather: multiple myloma paternal grandmother: leukemia paternal grandfather: pancreatic mother: breast cancer at 48 sister: lymphoma as a teenager, breast cancer at 39, doing well father: colon cancer paternal uncle: lung cancer maternal uncle: kidney cancer mother: skin cancer basal cell type maternal aunt: basal cell cancer Hormonal History: Menarche: 14 G0 periods regular, started yesterday BCP: used for 5 years, stopped 5 years ago hormones: none Past surgical history: 1. Laparotomy left ovary and fallopian tube removed 2. Lasic eye surgery Medical history: Negative Social history: Smoking: Negative alcohol: Occasional Drugs:none - Constitutional Constitutional: Denies chills, Denies fever - EENT Eyes: denies blurred vision, denies pain Ears: deny: decreased hearing, tinnitus Ears, nose, mouth and throat: Denies headache, Denies sore throat - Breasts Breasts: bilateral: as per HPI - Cardiovascular Cardiovascular: Denies chest pain, Denies shortness of breath - Respiratory Respiratory: Denies cough - Gastrointestinal Gastrointestinal: Denies abdominal pain, Denies diarrhea, Denies nausea, Denies vomiting - Menstruation Menstruation: Reports period normal - Musculoskeletal Musculoskeletal: Denies myalgias - Integumentary Integumentary: Denies pruritus, Denies rash - Neurological Neurological: Denies numbness, Denies weakness - Psychiatric Psychiatric: Denies anxiety, Denies depression - Endocrine Comment: hypothyroid - Hematologic/Lymphatic Comment: none Objective - Vital Signs Vital signs: Vital Signs Temp 98 F 07/28/22 16:23 Pulse 68 07/28/22 16:23 Resp 17 07/28/22 16:23 BP 118/59 07/28/22 16:23 Pulse Ox 100 07/28/22 16:23 FiO2 Intake & Output 07/27/22 07/28/22 07/28/22 18:59 06:59 18:59 Weight 77.111 kg - Constitutional General appearance: Present: cooperative - EENT Eyes: Present: EOMI ENT: Present: hearing grossly normal - Neck Neck: Present: normal ROM - Respiratory Respiratory: bilateral: CTA - Cardiovascular Rhythm: regular Heart sounds: normal: S1, S2 - Gastrointestinal General gastrointestinal: Present: soft - Integumentary Integumentary: Present: normal turgor - Musculoskeletal Musculoskeletal: Present: gait normal - Psychiatric Psychiatric: Present: A&O x's 3, appropriate affect, intact judgment & insight - Additional findings Additional findings: Breast Exam: BRA: 34DD Inspection: grade 2/3 ptosis Palpation: right breast: multi-positional exam fibrocystic changes no dominant masses or nodules of concern Right axilla: No adenopathy of concern Left breast: Multi-positional exam fibrocystic changes no dominant masses or nodules of concern Left axilla: No adenopathy of concern Assessment and Plan Assessment: Impression: Macromastia/back pain associated with this Bilateral mammogram 95601 BIRADS 1; MRI 07-15-22 no lesions of concern Lula model lifetime risk of breast cancer 36.5 Plan: Bilateral mammogram in 6 months We are alternating MRI with mammogram every 6 months as her lifetime risk is greater than 20%, And did have genetic testing done and tested negative Cc: Dr. Mahoney
== END ==
LOC: WWCWWP 15:41
PROVIDERS: ATTEND Surgery
DX: N60.11 Diffuse cystic mastopathy of right breast (principal); R92.8 Other abnormal and inconclusive findings on diagnostic imaging of breast; N62 Hypertrophy of breast; Z85.3 Personal history of malignant neoplasm of breast; Z80.0 Family history of malignant neoplasm of digestive organs

== ENCOUNTER → 2023-01-18 | Outpatient (CLI) | payer OTHER ==
--- NOTE | 2023-01-18 10:01 | MM ---
Reason for Exam: Additional evaluation requested from prior study. Last screening mammogram was performed 12 month(s) ago. Patient History: Menarche at age 14. Patient has no children. Left ovary removed at age 37. Premenopausal. Patient tested for TP53 outcome was negative. Hormonal Contraceptives, from age 22 until age 30. 03/19/2019, Benign Core Biopsy on the left side. Maternal grandmother had breast cancer, age 39. Sister had breast cancer, age 39. Mother had breast cancer, age 40. Risk Values: Lula 5 year model risk: 3.1%. NCI Lifetime model risk: 36.3%. Prior Study Comparison: 01/11/2019 Bilateral Screening Mammogram, [facility]. 01/11/2019 Bilateral Diagnostic Mammogram, [facility]. 07/08/2019 Bilateral Diagnostic Mammogram, [facility]. 01/07/2020 Bilateral Diagnostic Mammogram, [facility]. 07/07/2020 Left Diagnostic Mammogram, [facility]. 01/11/2021 Bilateral Screening Mammogram, [facility]. 01/13/2022 Bilateral MG 3D screening mammo w/cad, [facility]. Tissue Density: The breast tissue is heterogeneously dense. This may lower the sensitivity of mammography. Findings: Analyzed By CAD. Pattern appears stable. Surgical clips are present prior surgery on the left. Benign calcifications are present bilaterally. No suspicious groups of microcalcifications, spiculated or lobular masses, architectural distortion or other secondary signs of malignancy are mammographically apparent. Overall Assessment: Benign, BI-RAD 2 Management: Screening Mammogram of both breasts in 1 year. A negative mammogram report should not preclude additional follow up of suspicious palpable abnormalities. Patient should continue monthly self breast exam. A clinical breast exam by your physician is recommended on an annual basis and results should be correlated with mammographic findings. Electronically signed and approved by: Mitesh Peguero D.O. Radiologis
== END | disposition home or self-care (01) ==
LOC: RADMAMWWP 09:02
PROVIDERS: ATTEND Surgery
DX: R92.8 Other abnormal and inconclusive findings on diagnostic imaging of breast (principal); Z80.3 Family history of malignant neoplasm of breast
CPT/HCPCS: 77062; 77066

== ENCOUNTER 2023-03-29 08:46 | Day surgery (SDC) | payer OTHER ==
[2023-03-27 09:27] VITALS: BMI 32.4
[~2023-03-29 08:46] MED LIST changes: -DEXAMETHASONE SOD PHOSPHATE 10 MG/ML 1 ML VIAL IV ONE; -HEPARIN SODIUM,PORCINE 5,000 UNIT/ML 1 ML VIAL SQ ONE; -HYDROmorphone 0.5 MG/0.5 ML SYRINGE IVP PRN; +LACTATED RINGERS 1,000 ML IV SCH; +LIDOCAINE 1% (10MG/ML) FOR IV START INTRADERMA PRN; -MIDAZOLAM 2 MG/2 ML VIAL IV PRN; -Pre Op ABX Message 1 EACH MISC MISCELLANE ONE; -SCOPOLAMINE 1.5MG/72HR PATCH TRANSDERM ONE
[2023-03-29 09:37] VITALS: TEMP 98.1
[2023-03-29] MEDS ORDERED: PROPOFOL 10 MG/ML 20 ML VIAL IV ONE (10:32)
--- NOTE | 2023-03-29 11:08 | P.PCN ---
Date of Procedure: 03/29/23 Procedure(s) Performed: BRIEF HISTORY: Patient is a 42-year-old pleasant white female scheduled for an elective colonoscopy as a part of screening for colon cancer/family history of colon cancer. Her dad was diagnosed with colon cancer at age 65. PROCEDURE PERFORMED: Colonoscopy with snare polypectomy. PREOPERATIVE DIAGNOSIS: Screening for colon cancer and family history of colon cancer. IV sedation per Anesthesia. PROCEDURE: After informed consent was obtained, the patient, was brought into the endoscopy unit. IV sedation was administered by Anesthesia under continuous monitoring. Digital rectal examination was normal. Initially the Olympus CF-160 flexible video colonoscope was then inserted in the rectum, gradually advanced into the cecum without any difficulty. Careful examination was performed as the scope was gradually being withdrawn. Ileocecal valve and the appendiceal orifice were visualized and appeared normal. Prep was excellent. Mucosa of the cecum, ascending colon, transverse colon, descending colon were normal. In the sigmoid there was a 5 limited sessile polyp removed by cold snare polypectomy. Rest of the, sigmoid colon, and rectum appeared normal. Retroflexion was performed in the rectum and no lesions were seen. The patient tolerated the procedure well. IMPRESSION: 5 mm sigmoid polyp status post cold snare polypectomy Rest of the colon appeared normal RECOMMENDATIONS: Findings of this examination were discussed with the patient as well as a family. She was advised to follow with the biopsy results and have repeat screening colonoscopy in 10 years because of the family history of colon cancer.
[2023-03-29 12:07] VITALS: BP 116/75; PULSE 60; RESP 16
== END 2023-03-29 11:44 | disposition home or self-care (01) ==
LOC: ORWHC2ENDO 08:46
PROVIDERS: ATTEND Internal Medicine Gastroenterology
DX: Z12.11 Encounter for screening for malignant neoplasm of colon (principal); D12.5 Benign neoplasm of sigmoid colon; J45.909 Unspecified asthma, uncomplicated; E07.9 Disorder of thyroid, unspecified; Z80.0 Family history of malignant neoplasm of digestive organs; Z79.899 Other long term (current) drug therapy; Z79.890 Hormone replacement therapy
CPT/HCPCS: 81025; 88305; 45385; J2704

== ENCOUNTER → 2023-07-19 | Outpatient (CLI) | payer OTHER ==
--- NOTE | 2023-07-20 07:51 | BMR ---
EXAM DATE: 07/19/2023 EXAM DESCRIPTION: MRI-Breast Bilat (W/WO Contrast) INDICATION: >20% lifetime risk for malignancy, high risk surveillance. COMPARISON: Comparison was made to prior relevant imaging available in PACS TECHNIQUE: Multiplanar multisequence breast MRI was performed prior to and after administration of 8 mL of Gadavist intravenously. Post processing was performed utilizing a [employer] workstation. The exam was performed at [facility] and was submitted to review by [facility] radiologist. FINDINGS: There is marked, symmetric background parenchymal enhancement in breasts that are composed of scattered fibroglandular tissue.. RIGHT BREAST: Review of the dynamic contrast enhanced series shows no rapidly enhancing masses, suspicious enhancement patterns or other abnormalities. The T2 weighted series show no abnormality. LEFT BREAST: Benign postsurgical changes are present in the upper outer breast. Review of the dynamic contrast enhanced series shows no rapidly enhancing masses, suspicious enhancement pattern or other abnormalities. The T2 weighted series show no abnormality. IMPRESSION: Right breast: BI-RADS Category 1-negative. No MRI evidence of malignancy. Recommendation: MRI screening in 1 year Left breast: BI-RADS Category 2-benign. No MR evidence of malignancy. Recommendation: MRI screening in 1 year. OVERALL ASSESSMENT- BI-RADS 2 MTDD
== END | disposition home or self-care (01) ==
LOC: RADMRIMAIN 08:27
PROVIDERS: ATTEND Surgery
DX: R92.8 Other abnormal and inconclusive findings on diagnostic imaging of breast (principal)
CPT/HCPCS: 77049; A9585

== ENCOUNTER → 2024-01-22 | Outpatient (CLI) | payer OTHER ==
--- NOTE | 2024-01-22 14:04 | MM ---
Reason for Exam: Additional evaluation requested from prior study. Last screening mammogram was performed 12 month(s) ago. Patient History: Menarche at age 14. Patient has no children. Left ovary removed at age 37. Premenopausal. Patient tested for TP53 outcome was negative. Hormonal Contraceptives, from age 22 until age 30. 03/19/2019, Benign Core Biopsy on the left side. Maternal grandmother had breast cancer, age 39. Sister had breast cancer, age 39. Mother had breast cancer, age 40. Risk Values: Lula 5 year model risk: 3.3%. NCI Lifetime model risk: 35.9%. Prior Study Comparison: 01/11/2019 Bilateral Screening Mammogram, [facility]. 01/11/2019 Bilateral Diagnostic Mammogram, [facility]. 07/08/2019 Bilateral Diagnostic Mammogram, [facility]. 01/07/2020 Bilateral Diagnostic Mammogram, [facility]. 07/07/2020 Left Diagnostic Mammogram, [facility]. 01/11/2021 Bilateral Screening Mammogram, [facility]. 01/13/2022 Bilateral MG 3D screening mammo w/cad, [facility]. 01/18/2023 Bilateral MG 3D diag mammo w/cad DEE, [facility]. Tissue Density: The breasts are heterogeneously dense, which may obscure small masses. Findings: Analyzed By CAD. The pattern is symmetrical. Surgical clips are within the upper outer anterior left breast. In the subareolar lateral left breast there is a 2.5 cm area of increased density. This is better visualized than prior examinations. Largest prior measurement was approximately 2.2 cm in 2000. This is somewhat larger than the comparison studies. Additional workup with ultrasound is recommended. There is some mildly increased punctate calcifications adjacent coarse calcifications within the right breast. Magnification views recommended. There is a focal asymmetry within the medial right breast not present on prior examinations. Compression view recommended for additional evaluation. May be a summation density not identified on the mediolateral oblique view. Overall Assessment: Incomplete: need additional imaging evaluation, BI-RAD 0 Management: Diagnostic Mammogram of the right breast. Diagnostic Breast Ultrasound of the left breast. A negative mammogram report should not preclude additional follow up of suspicious palpable abnormalities. Patient should continue monthly self breast exam. A clinical breast exam by your physician is recommended on an annual basis and results should be correlated with mammographic findings. Note on Lula scores and lifetime risk: 1. A Lula score greater than 3% is considered moderate risk. If this is the case, consider specialist referral to assess eligibility for a risk reducing agent. 2. If overall lifetime risk for the development of breast cancer is 20% or higher, the patient may qualify for future screening with alternating mammogram and breast MRI. [facility], , 01/22/2024 2:00 PM. Electronically signed and approved by: Mitesh Peguero D.O. Radiologis
--- NOTE | 2024-01-22 15:21 | USB ---
Reason for Exam: Additional evaluation requested from abnormal screening. Patient History: Menarche at age 14. Patient has no children. Left ovary removed at age 37. Premenopausal. Patient tested for TP53 outcome was negative. Hormonal Contraceptives, from age 22 until age 30. 03/19/2019, Benign Core Biopsy on the left side. Maternal grandmother had breast cancer, age 39. Sister had breast cancer, age 39. Mother had breast cancer, age 40. Risk Values: Lula 5 year model risk: 3.3%. NCI Lifetime model risk: 35.9%. Prior Study Comparison: 07/07/2020 Left Diagnostic Ultrasound, [facility]. 01/11/2021 Bilateral Screening Mammogram, [facility]. 01/13/2022 Bilateral MG 3D screening mammo w/cad, [facility]. 01/18/2023 Bilateral MG 3D diag mammo w/cad DEE, [facility]. Findings: The axilla of the left breast and the retroareolar of the left breast were scanned. There is an isoechoic area measuring 2.5 x 2.4 x 0.9 cm the 2:00 position at the left nipple. This area corresponds to the prior study at 2020. Echogenicity appears normal.. Overall Assessment: Probably benign, BI-RAD 3 Management: Diagnostic Mammogram of the left breast in 6 months. Stereotactic Core Biopsy of the right breast. A clinical breast exam by your physician is recommended on an annual basis and results should be correlated with mammographic findings. This exam should not preclude additional follow-up of suspicious palpable abnormalities. Results were given to the patient verbally at the time of exam. [facility], , 01/22/2024 3:04 PM. Electronically signed and approved by: Mitesh Peguero D.O. Radiologis
== END | disposition home or self-care (01) ==
LOC: RADMAMWWP 13:15
PROVIDERS: ATTEND Surgery
DX: R92.8 Other abnormal and inconclusive findings on diagnostic imaging of breast
CPT/HCPCS: 77062; 77066

== ENCOUNTER → 2024-02-01 | Day surgery (SDC) | payer OTHER ==
[~2024-02-01] MED LIST changes: +ALPRAZolam 0.25 MG TAB PO PRN; -LACTATED RINGERS 1,000 ML IV SCH; -LIDOCAINE 1% (10MG/ML) FOR IV START INTRADERMA PRN
[2024-02-01] MEDS: ALPRAZolam 0.5 MG TAB PO PRN (07:43)
[2024-02-01 07:51] VITALS: RESP 16
--- NOTE | 2024-02-01 08:45 | P.PN ---
Subjective Progress Note Date: 02/01/24 Principal diagnosis: Abnormal bilateral mammogram/microcalcifications of concern right breast/high risk breast cancer 01/20/23 Principal diagnosis: high risk breast cancer high risk breast cancer high risk breast cancer screening for breast disease High risk breast cancer/screening/prior abnormal mammogram Shannan is a 40-year-old white female who underwent a routine baseline screening mammogram on 01-07-20 this revealed skin thickening and architectural distortion in the upper outer quadrant of the left breast. In the right breast there were grouped/clustered calcifications and asymmetric breast tissue in the medial upper aspect which was felt to be stable. This was felt to be benign BIRADS 3 and follow-up diagnostic mammogram of the left breast in 6 months was recommended. She had routine screening mammogram in December 2018. following this mammogram was recommended that bilateral additional views be obtained and additional views there was noted to be an 8 mm group of calcifications in the outer quadrant and middle depth of the left breast and left breast calcifications in the central upper and central lower breast. The left breast calcifications were noted to be heterogeneous and close to the skin these were indeterminant and surgical biopsy was recommended. On the right breast it was felt that these were most likely the possible fat necrosis and six-month follow-up was recommended for both groups of calcification in the right breast. She had a needle localization and excisional biopsy an 1119-19 for the microcalcifications in the left breast. The specimen did not reveal the microcalcifications. Pathology revealed proliferative fibrocystic changes including focal complex sclerosing lesion/radial scar with usual type ductal hyperplasia, fibrosis, cyst, and apocrine metaplasia. At that time the case was discussed with radiology as well as pathology and it was recommended she have a repeat mammogram at 6 months. This was repeated on July 072019. This revealed heterogeneously dense breast tissue and mag views on the left did not demonstrate any residual calcifications at the original left upper outer quadrant site. [place] [address] had repeat bilateral mammogram and repeat left breast mammogram in 6 months is recommended. Her repeat left breast mammogram and ultrasound were done on 07-07-20. These were benign BIRAD 2 and routine screening of both breast in 6 months recommended. She had a bilateral mammgram on 01-11-21. This was benign BIRAD 2. 01-20-22 Shannan does not feel any masses or nodules in her breasts. She does not complain any breast pain. She does not have any abnormal nipple discharge. She has no history of any trauma or infection in the breast. We did notice a change in pigmentation on the right nipple. She had a bilateral mammogram on 01-13-22 which was BIRAD 1. 07-28-22 Is not complaining of any new lumps masses or nodules of concern in either breast. She underwent a bilateral MRI on which did not reveal any lesions of concern in either breast. The patient had genetic testing done approximately 4 years ago and states she was negative. She is going to try to obtain a copy of that report. 01-20-23 Bilateral mammogram on 01-18-23 BIRAD 2 She is not complaining of any new lumps masses or nodules of concern in either breast. 02-01-24 Shannan is a 43-year-old female who is at high risk for breast cancer Lula 5-year risk model 3.3% and NCI lifetime risk 35.9%. She has had a 25 pound weight loss since the past year and is noticed some changes in her breast related to the weight loss but otherwise no dominant masses or nodules of concern in either breast. The patient on 01-22-2024 underwent a bilateral mammogram. This revealed some new microcalcifications of concern in the right breast. The recommendation was for a diagnostic mammogram of the right breast patient views were performed at the time of the mammogram and calcifications were noted to have been increased and a stereotactic core biopsy was recommended. And a diagnostic ultrasound of the left breast. Ultrasound of the left breast was performed on 01-22-2024. The axilla of the left breast and retroareolar region of the left breast were scanned. There was an isoechoic area measuring 2.5 x 2.4 x 9 cm. The area corresponded to a prior lesion in 2020. Echogenicity appeared normal. Ultrasound of the left breast in 6 months was recommended. And a stereotactic core biopsy of the right breast was recommended. Lula Risk: 5 year 3.1% lifetime risk: 36.3% We have discussed chemoprevention and the patient has declined. We've also discussed greater than 20% lifetime risk that she could alternate MRI with mammogram and she would like to pursue this. coffee: 4 cups/day The patient does not smoke and she is not exposed to secondhand smoke. She has chocolate occasionally. BCP: no She does not take hormones. Her menstrual periods are regular. Patient is a vegetarian and eats soy twice a week In 2003 her mother tested for BRACA and negative, both sisters tested the one that had cancer tested negative for any abnormalities, a second sister without cancer tested positive for PALB2. The patient is being tested for PALB 2 as well, she is negative. Family History: maternal grandmother: 39 breast cancer, of mets. maternal grandfather: multiple myloma paternal grandmother: leukemia paternal grandfather: pancreatic mother: breast cancer at 48 sister: lymphoma as a teenager, breast cancer at 39, doing well father: colon cancer paternal uncle: lung cancer maternal uncle: kidney cancer mother: skin cancer basal cell type maternal aunt: basal cell cancer Hormonal History: Menarche: 14 G0 periods regular, started yesterday BCP: used for 5 years, stopped 5 years ago hormones: none Past surgical history: 1. Laparotomy left ovary and fallopian tube removed 2. Lasic eye surgery Medical history: Negative Social history: Smoking: Negative alcohol: Occasional Drugs:none - Constitutional Constitutional: Denies chills, Denies fever - EENT Eyes: denies blurred vision, denies pain Ears: deny: decreased hearing, tinnitus Ears, nose, mouth and throat: Denies headache, Denies sore throat - Breasts Breasts: bilateral: as per HPI - Cardiovascular Cardiovascular: Denies chest pain, Denies shortness of breath - Respiratory Respiratory: Denies cough - Gastrointestinal Gastrointestinal: Denies abdominal pain, Denies diarrhea, Denies nausea, Denies vomiting - Menstruation Menstruation: Reports period normal - Musculoskeletal Musculoskeletal: Denies myalgias - Integumentary Integumentary: Denies pruritus, Denies rash - Neurological Neurological: Denies numbness, Denies weakness - Psychiatric Psychiatric: Denies anxiety, Denies depression - Endocrine Comment: hypothyroid - Hematologic/Lymphatic Comment: none Objective - Vital Signs Vital signs: Vital Signs Temp 98.0 F 02/01/24 07:45 Pulse 73 02/01/24 07:45 Resp 16 02/01/24 07:45 BP 124/79 02/01/24 07:45 Pulse Ox FiO2 Intake & Output 01/31/24 02/01/24 02/01/24 18:59 06:59 18:59 Weight 68.039 kg - Constitutional General appearance: Present: cooperative - EENT Eyes: Present: EOMI ENT: Present: hearing grossly normal - Neck Neck: Present: normal ROM - Respiratory Respiratory: bilateral: CTA - Cardiovascular Rhythm: regular Heart sounds: normal: S1, S2 - Integumentary Integumentary: Present: normal turgor - Psychiatric Psychiatric: Present: A&O x's 3, appropriate affect, intact judgment & insight - Additional findings Additional findings: Breast Exam: BRA: 34DD Inspection: grade 2/3 ptosis Palpation: right breast: fibrocystic changes no dominant masses or nodules of concern Right axilla: No adenopathy of concern Left breast: fibrocystic changes no dominant masses or nodules of concern Left axilla: No adenopathy of concern Assessment and Plan Assessment: Impression: Bilateral mammogram 01-22-2024 microcalcifications of concern right breast, diagnostic ultrasound of the left breast performed 01-22-2024 this revealed an isoechoic area at the 2 o'clock position near the left nipple corresponding to a prior study echogenicity appeared normal diagnostic mammogram of the left breast in 6 months BIRAD2; MRI 07-15-22 no lesions of concern Lula model lifetime risk of breast cancer 35.9, 3.3% Plan: Stero needle biopsy right breast Stereo tactic core biopsy of the right breast Continue alternating MRI and mammogram every 6 months secondary to high risk of breast cancer Risk and benefits of the procedure discussed with the patient. Risk include but are not limited to bleeding, infection, reaction to the anesthetic. Depending on results of the biopsy MRI of both breast in 6 months will be recommended. Cc: Dr. Mahoney
--- NOTE | 2024-02-01 08:49 | P.BCAON ---
Date of Procedure: 02/01/24 Preoperative Diagnosis: Microcalcifications of concern right breast Postoperative Diagnosis: Same Procedure(s) Performed: Right breast stereotactic core biopsy Anesthesia: local Surgeon: Maira Joyce Pathology: other (Breast tissue/radiograph of specimen reveals microcalcifications) Condition: stable Disposition: same day Indications for Procedure: Increasing microcalcifications right breast Operative Findings: Radiograph of specimen reveals microcalcifications of concern Description of Procedure: Following informed consent the patient was taken to the stereotactic core biopsy room. The patient was noted to have increasing microcalcifications in the right breast. The patient was positioned in the upright chair. A pediatrician/medical doctor film was obtained. The microcalcifications of concern were identified. The lesion was targeted. The breast was prepped using chlorhexidine. 20 cc of 1% lidocaine was used to anesthetize the area of concern. An 9 gauge vacuum-assisted core rotating biopsy needle was driven to the correct coordinates. A prefire film was obtained. The needle was noted to be in the correct location. The needle was fired. The needle was noted to be in the correct location. 14 core biopsy specimens were obtained. Radiograph of the specimen revealed several microcalcifications although not all of the microcalcifications were removed. A secure alecia Top-Hat clip was deployed. The clip appeared to be in the correct location. The patient tolerated the procedure in stable condition. The specimen is sent to pathology. The patient will follow-up next week for evaluation.
[2024-02-01 09:12] VITALS: BP 113/78; PULSE 70; TEMP 98.3
--- NOTE | 2024-02-02 08:46 | MM ---
Following consent the patient was again positioned in the upright chair in the stereotactic core biopsy room. A bottom ironer film was obtained. The microcalcifications of concern were identified and targeted. The breast was prepped using chlorhexidine. At this time 12 cc of 1% lidocaine with epinephrine was used to anesthetize the area of concern. A 9 gauge vacuum- assisted petite core rotating biopsy needle was driven to the correct coordinates. A post fire film was obtained. The needle was inferior to the lesion of concern. There was some question as to whether the patient moved however of greater concern was the fact that the thickness of the breast did not allow for sampling of the lesion. Prior to this an attempt at approaching the lesion from a location had been done and the breast was too thin to accommodate this. Therefore after discussion with Dr. Hamilton it was felt that a stereo biopsy could not be performed secondary to the pancaking/thickness of the breast and a needle localization and resection in the operating room will be recommended. She will follow-up next week for results of the initial stereo biopsy of which there is concern that the area initially of concern was adequately targeted. Addendum entered and electronically signed by Maira Joyce MD 02/01/24 09:06: Please note the postprocedure radiographs were reviewed with Dr. Hamilton, he had concerns that the area of concern had been appropriately sampled and therefore repeat sampling was recommended. The patient is aware of this and a repeat stereo biopsy has been recommended. Original Note: Date of Procedure: 02/01/24 Preoperative Diagnosis: Microcalcifications of concern right breast Postoperative Diagnosis: Same Procedure(s) Performed: Right breast stereotactic core biopsy Anesthesia: local Surgeon: Maira Joyce Pathology: other (Breast tissue/radiograph of specimen reveals microcalcifications) Condition: stable Disposition: same day Indications for Procedure: Increasing microcalcifications right breast Operative Findings: Radiograph of specimen reveals microcalcifications of concern Description of Procedure: Following informed consent the patient was taken to the stereotactic core biopsy room. The patient was noted to have increasing microcalcifications in the right breast. The patient was positioned in the upright chair. A bottom ironer film was obtained. The microcalcifications of concern were identified. The lesion was targeted. The breast was prepped using chlorhexidine. 20 cc of 1% lidocaine was used to anesthetize the area of concern. An 9 gauge vacuum-assisted core rotating biopsy needle was driven to the correct coordinates. A prefire film was obtained. The needle was noted to be in the correct location. The needle was fired. The needle was noted to be in the correct location. 14 core biopsy specimens were obtained. Radiograph of the specimen revealed several microcalcifications although not all of the microcalcifications were removed. A secure alecia Top-Hat clip was deployed. The clip appeared to be in the correct location. The patient tolerated the procedure in stable condition. The specimen is sent to pathology. The patient will follow-up next week for evaluation. GUSTAVO
== END ==
LOC: RADMAMWWP 07:30
PROVIDERS: ATTEND Surgery
DX: N60.11 Diffuse cystic mastopathy of right breast (principal)
CPT/HCPCS: 88305

== ENCOUNTER → 2024-02-07 | Outpatient (CLI) | payer OTHER ==
[2024-02-07 11:51] VITALS: BP 127/86; PULSE 67; RESP 17; TEMP 98.1
--- NOTE | 2024-02-07 11:51 | P.PN ---
Subjective Progress Note Date: 02/07/24 Principal diagnosis: abnormal right breast mammogram Principal diagnosis: high risk breast cancer abnormal bilateral mammogram 01-20-23 high risk breast cancer screening for breast disease High risk breast cancer/screening/prior abnormal mammogram Shannan underwent a routine baseline screening mammogram on 01-07-20 this revealed skin thickening and architectural distortion in the upper outer quadrant of the left breast. In the right breast there were grouped/clustered calcifications and asymmetric breast tissue in the medial upper aspect which was felt to be stable. This was felt to be benign BIRADS 3 and follow-up diagnostic mammogram of the left breast in 6 months was recommended. She had routine screening mammogram in December 2018. following this mammogram was recommended that bilateral additional views be obtained and additional views there was noted to be an 8 mm group of calcifications in the outer quadrant and middle depth of the left breast and left breast calcifications in the central upper and central lower breast. The left breast calcifications were noted to be heterogeneous and close to the skin these were indeterminant and surgical biopsy was recommended. On the right breast it was felt that these were most likely the possible fat necrosis and six-month follow-up was recommended for both groups of calcification in the right breast. She had a needle localization [place] 11101-17 for the microcalcifications in the left breast. The specimen did not reveal the microcalcifications. Pathology revealed proliferative fibrocystic changes including focal complex sclerosing lesion/radial scar with usual type ductal hyperplasia, fibrosis, cyst, and apocrine metaplasia. At that time the case was discussed with radiology as well as pathology and it was recommended she have a repeat mammogram at 6 months. This was repeated on July 072019. This revealed heterogeneously dense breast tissue and mag views on the left did not demonstrate any residual calcifications at the original left upper outer quadrant site. The [place] on 9819 had repeat bilateral mammogram and repeat left breast mammogram in 6 months is recommended. Her repeat left breast mammogram and ultrasound were done on 07-07-20. These were benign BIRAD 2 and routine screening of both breast in 6 months recommended. She had a bilateral mammgram on 01-11-21. This was benign BIRAD 2. 01-20-22 Shannan does not feel any masses or nodules in her breasts. She does not complain any breast pain. She does not have any abnormal nipple discharge. She has no history of any trauma or infection in the breast. We did notice a change in pigmentation on the right nipple. She had a bilateral mammogram on 01-13-22 which was BIRAD 1. 07-28-22 Is not complaining of any new lumps masses or nodules of concern in either breast. She underwent a bilateral MRI on which did not reveal any lesions of concern in either breast. The patient had genetic testing done approximately 4 years ago and states she was negative. She is going to try to obtain a copy of that report. 01-20-23 Bilateral mammogram on 01-18-23 BIRAD 2 She is not complaining of any new lumps masses or nodules of concern in either breast. 02-01-24 Shannan is a 43-year-old female who is at high risk for breast cancer Lula 5-year risk model 3.3% and NCI lifetime risk 35.9%. She has had a 25 pound weight loss since the past year and is noticed some changes in her breast related to the weight loss but otherwise no dominant masses or nodules of concern in either breast. The patient on 01-22-2024 underwent a bilateral mammogram. This revealed some new microcalcifications of concern in the right breast. The recommendation was for a diagnostic mammogram of the right breast patient views were performed at the time of the mammogram and calcifications were noted to have been increased and a stereotactic core biopsy was recommended. And a diagnostic ultrasound of the left breast. Ultrasound of the left breast was performed on 01-22-2024. The axilla of the left breast and retroareolar region of the left breast were scanned. There was an isoechoic area measuring 2.5 x 2.4 x 9 cm. The area corresponded to a prior lesion in 2020. Echogenicity appeared normal. Ultrasound of the left breast in 6 months was recommended. And a stereotactic core biopsy of the right breast was recommended. She had an attempt at a stero biopsy on 02-01-24. The area biopsied was benign with fibrocystic changes but not felt to represent the area on the right breast mammogram. Another attempt at stero biopsy was unsuccessful secondary to the thinness of the breast. After discussion with Dr. Hamilton a needle localization and resection of the area was recommended. Lula Risk: 5 year 3.1% lifetime risk: 36.3% We have discussed chemoprevention and the patient has declined. We've also discussed greater than 20% lifetime risk that she could alternate MRI with mammogram and she would like to pursue this. coffee: 4 cups/day The patient does not smoke and she is not exposed to secondhand smoke. She has chocolate occasionally. BCP: no She does not take hormones. Her menstrual periods are regular. Patient is a vegetarian and eats soy twice a week In 2003 her mother tested for BRACA and negative, both sisters tested the one that had cancer tested negative for any abnormalities, a second sister without cancer tested positive for PALB2. The patient is being tested for PALB 2 as well, she is negative. Family History: maternal grandmother: 39 breast cancer, of mets. maternal grandfather: multiple myloma paternal grandmother: leukemia paternal grandfather: pancreatic mother: breast cancer at 48 sister: lymphoma as a teenager, breast cancer at 39, doing well father: colon cancer paternal uncle: lung cancer maternal uncle: kidney cancer mother: skin cancer basal cell type maternal aunt: basal cell cancer Hormonal History: Menarche: 14 G0 periods regular, started yesterday BCP: used for 5 years, stopped 5 years ago hormones: none Past surgical history: 1. Laparotomy left ovary and fallopian tube removed 2. Lasic eye surgery Medical history: Negative Social history: Smoking: Negative alcohol: Occasional Drugs:none - Constitutional Constitutional: Denies chills, Denies fever - EENT Eyes: denies blurred vision, denies pain Ears: deny: decreased hearing, tinnitus Ears, nose, mouth and throat: Denies headache, Denies sore throat - Breasts Breasts: bilateral: as per HPI - Cardiovascular Cardiovascular: Denies chest pain, Denies shortness of breath - Respiratory Respiratory: Denies cough - Gastrointestinal Gastrointestinal: Denies abdominal pain, Denies diarrhea, Denies nausea, Denies vomiting - Menstruation Menstruation: Reports period normal - Musculoskeletal Musculoskeletal: Denies myalgias - Integumentary Integumentary: Denies pruritus, Denies rash - Neurological Neurological: Denies numbness, Denies weakness - Psychiatric Psychiatric: Denies anxiety, Denies depression - Endocrine Comment: hypothyroid - Hematologic/Lymphatic Comment: none Objective - Constitutional General appearance: Present: cooperative - EENT Eyes: Present: EOMI ENT: Present: hearing grossly normal - Neck Neck: Present: normal ROM - Respiratory Respiratory: bilateral: CTA - Cardiovascular Rhythm: regular Heart sounds: normal: S1, S2 - Gastrointestinal General gastrointestinal: Present: soft - Integumentary Integumentary: Present: normal turgor - Musculoskeletal Musculoskeletal: Present: gait normal - Psychiatric Psychiatric: Present: A&O x's 3, appropriate affect, intact judgment & insight - Additional findings Additional findings: Breast Exam: BRA: 34DD, left nipple complex is slightly higher than the right Inspection: grade 2/3 ptosis Palpation: right breast: fibrocystic changes no dominant masses or nodules of concern Right axilla: No adenopathy of concern Left breast: fibrocystic changes no dominant masses or nodules of concern Left axilla: No adenopathy of concern Assessment and Plan Assessment: Impression: Bilateral mammogram 01-22-2024 microcalcifications of concern right breast, litzy gnostic ultrasound of the left breast performed 01-22-2024 this revealed an isoechoic area at the 2 o'clock position near the left nipple corresponding to a prior study echogenicity appeared normal diagnostic mammogram of the left breast in 6 months BIRAD2; MRI 07-15-22 no lesions of concern Lula model lifetime risk of breast cancer 35.9, 3.3% Plan: Stero needle biopsy right breast unsuccessful for the area of concern on 02-01-24 needle localization and resection microcalcification of concern in the right breast via right mastopexy incision Continue alternating MRI and mammogram every 6 months secondary to high risk of breast cancer Risk and benefits of the procedure discussed with the patient. Risk include but are not limited to bleeding, infection, reaction to the anesthetic. Cc: Dr. Mahoney
== END ==
LOC: WWCWWP 10:22
PROVIDERS: ATTEND Surgery

== ENCOUNTER 2024-03-19 10:33 | Day surgery (SDC) | payer OTHER ==
--- NOTE | 2024-03-14 16:08 | P.PN ---
Subjective Progress Note Date: 03/14/24 Principal diagnosis: abnormal right breast mammogram 03-14-24 Principal diagnosis: abnormal right breast mammogram Principal diagnosis: Shannan is a 43-year-old female who is at high risk for breast cancer Lula 5-year risk model 3.3% and NCI lifetime risk 35.9%. She has had a 25 pound weight loss since the past year and is noticed some changes in her breast related to the weight loss but otherwise no dominant masses or nodules of concern in either breast. The patient on 01-22-2024 underwent a bilateral mammogram. This revealed some new microcalcifications of concern in the right breast. The recommendation was for a diagnostic mammogram of the right breast patient views were performed at the time of the mammogram and calcifications were noted to have been increased and a stereotactic core biopsy was recommended. And a diagnostic ultrasound of the left breast. Ultrasound of the left breast was performed on 01-22-2024. The axilla of the left breast and retroareolar region of the left breast were scanned. There was an isoechoic area measuring 2.5 x 2.4 x 9 cm. The area corresponded to a prior lesion in 2020. Echogenicity appeared normal. Ultrasound of the left breast in 6 months was recommended. And a stereotactic core biopsy of the right breast was recommended. She had an attempt at a stero biopsy on 02-01-24. The area biopsied was benign with fibrocystic changes but not felt to represent the area on the right breast mammogram. Another attempt at stero biopsy was unsuccessful secondary to the thinness of the breast. After discussion with Dr. Hamilton a needle localization and resection of the area was recommended. Lula Risk: 5 year 3.1% lifetime risk: 36.3% We have discussed chemoprevention and the patient has declined. We've also discussed greater than 20% lifetime risk that she could alternate MRI with mammogram and she would like to pursue this. coffee: 4 cups/day The patient does not smoke and she is not exposed to secondhand smoke. She has chocolate occasionally. BCP: no She does not take hormones. Her menstrual periods are regular. Patient is a vegetarian and eats soy twice a week In 2003 her mother tested for BRACA and negative, both sisters tested the one that had cancer tested negative for any abnormalities, a second sister without cancer tested positive for PALB2. The patient is being tested for PALB 2 as well, she is negative. Family History: maternal grandmother: 39 breast cancer, of mets. maternal grandfather: multiple myloma paternal grandmother: leukemia paternal grandfather: pancreatic mother: breast cancer at 48 sister: lymphoma as a teenager, breast cancer at 39, doing well father: colon cancer paternal uncle: lung cancer maternal uncle: kidney cancer mother: skin cancer basal cell type maternal aunt: basal cell cancer Hormonal History: Menarche: 14 G0 periods regular, started yesterday BCP: used for 5 years, stopped 5 years ago hormones: none Past surgical history: 1. Laparotomy left ovary and fallopian tube removed 2. Lasic eye surgery Medical history: Negative Social history: Smoking: Negative alcohol: Occasional Drugs:none - Constitutional Constitutional: Denies chills, Denies fever - EENT Eyes: denies blurred vision, denies pain Ears: deny: decreased hearing, tinnitus Ears, nose, mouth and throat: Denies headache, Denies sore throat - Breasts Breasts: bilateral: as per HPI - Cardiovascular Cardiovascular: Denies chest pain, Denies shortness of breath - Respiratory Respiratory: Denies cough - Gastrointestinal Gastrointestinal: Denies abdominal pain, Denies diarrhea, Denies nausea, Denies vomiting - Menstruation Menstruation: Reports period normal - Musculoskeletal Musculoskeletal: Denies myalgias - Integumentary Integumentary: Denies pruritus, Denies rash - Neurological Neurological: Denies numbness, Denies weakness - Psychiatric Psychiatric: Denies anxiety, Denies depression - Endocrine Comment: hypothyroid - Hematologic/Lymphatic Comment: none Objective - Constitutional General appearance: Present: cooperative - EENT Eyes: Present: EOMI ENT: Present: hearing grossly normal - Neck Neck: Present: normal ROM - Respiratory Respiratory: bilateral: CTA - Cardiovascular Rhythm: regular Heart sounds: normal: S1, S2 - Integumentary Integumentary: Present: normal turgor - Musculoskeletal Musculoskeletal: Present: gait normal - Psychiatric Psychiatric: Present: A&O x's 3, appropriate affect, intact judgment & insight - Additional findings Additional findings: Breast Exam: BRA: 34DD, left nipple complex is slightly higher than the right Inspection: grade 2/3 ptosis Palpation: right breast: fibrocystic changes no dominant masses or nodules of concern Right axilla: No adenopathy of concern Left breast: fibrocystic changes no dominant masses or nodules of concern Left axilla: No adenopathy of concern Assessment and Plan Assessment: Impression: Bilateral mammogram 01-22-2024 microcalcifications of concern right breast, diagnostic ultrasound of the left breast performed 01-22-2024 this revealed an isoechoic area at the 2 o'clock position near the left nipple corresponding to a prior study echogenicity appeared normal diagnostic mammogram of the left breast in 6 months BIRAD2; MRI 07-15-22 no lesions of concern Lula model lifetime risk of breast cancer 35.9, 3.3% Plan: Stero needle biopsy right breast unsuccessful for the area of concern on 02-01-24 right breast needle localization and resection microcalcification of concern in the right breast Continue alternating MRI and mammogram every 6 months secondary to high risk of breast cancer Risk and benefits of the procedure discussed with the patient. Risk include but are not limited to bleeding, infection, reaction to the anesthetic. Cc: Dr. Mahoney
[~2024-03-19 10:33] MED LIST changes: -ALPRAZolam 0.25 MG TAB PO PRN; +HYDROmorphone 0.5 MG/0.5 ML SYRINGE IVP PRN
[2024-03-19] MEDS: IV FLUID CONTINUATION 1,000 ML IV ONE (11:02)
[2024-03-19] MEDS: ALPRAZolam 0.5 MG TAB PO STA (11:12)
[2024-03-19] MEDS: LACTATED RINGERS 1,000 ML IV SCH (11:26)
[2024-03-19] MEDS: SCOPOLAMINE 1 MG/72 HR PATCH TRANSDERM STA (11:30)
[2024-03-19] MEDS: ACETAMINOPHEN TAB 500 MG TAB PO PRN (11:32)
[2024-03-19] MEDS: LIDOCAINE 1% INJ 10MG/ML (20 ML MDV) SQ ONE ×2 (12:20→14:50)
[2024-03-19] MEDS: ONDANSETRON 4 MG/2 ML VIAL IVP ONE (12:53)
[2024-03-19] MEDS: DEXAMETHASONE SOD PHOSPHATE 4 MG/ML 1 ML VIAL IV ONE (12:56)
[2024-03-19] MEDS: HEPARIN SODIUM,PORCINE 5,000 UNIT/ML 1 ML VIAL SQ PRN (12:57)
[2024-03-19] MEDS ORDERED: PROPOFOL 10 MG/ML 20 ML VIAL IV ONE (14:25)
[2024-03-19] MEDS ORDERED: LIDOCAINE 1% INJ 10MG/ML (20 ML MDV) ONE (14:25)
[2024-03-19] MEDS ORDERED: MIDAZOLAM 2 MG/2 ML VIAL ONE (14:25)
[2024-03-19] MEDS ORDERED: fentaNYL (PF) 50 MCG/ML 2 ML AMP ONE (14:25)
[2024-03-19] MEDS ORDERED: diphenhydrAMINE 50 MG/ML 1 ML VIAL ONE (14:25)
[2024-03-19] MEDS ORDERED: PHENYLEPHRINE 10 MG/ML VIAL ONE (14:25)
--- NOTE | 2024-03-19 15:19 | P.BCAON ---
Date of Procedure: 03/19/24 Preoperative Diagnosis: Microcalcifications of concern right breast Postoperative Diagnosis: Same Procedure(s) Performed: Needle localized lumpectomy right breast Anesthesia: NAVAA Surgeon: Maira Joyce Estimated Blood Loss (ml): 10 IV fluids (ml): 400 Pathology: other (Breast tissue) Condition: stable Disposition: same day Indications for Procedure: Microcalcifications of concern right breast Operative Findings: Dense breast tissue Description of Procedure: The patient was initially seen in the radiology department for needle localization of the area of concern was performed. She was then brought to the operative suite. Following induction of anesthesia the right breast was prepped and draped in a sterile fashion. An incision was made and carried down to the end of the needle. Surrounding tissue was excised. Posteriorly dissection was onto the pectoralis muscle. Near the tip of the needle was a pocket of an old biopsy site which had a hematoma present in it. This was excised as well. After the area was excised the specimen was removed and painted for orientation. It was sent for radiographic confirmation the area of concern to been removed. After reassured that hemostasis was attained the wound was well irrigated. Surgicel in powder form was placed. Titanium clips were placed. The deep tissues were closed using 3-0 Vicryl suture. The skin was closed using 4-0 Monocryl. 10 cc of 1% lidocaine are injected into the area of the incision. All instrument and sponge counts were correct at the end of the case.
[2024-03-19 15:42] VITALS: TEMP 97.7
[2024-03-19 16:39] VITALS: RESP 14
[2024-03-19 17:32] VITALS: BP 101/66; PULSE 49
--- NOTE | 2024-03-20 08:16 | MM ---
Risk Values: Lula 5 year model risk: 5.6%. NCI Lifetime model risk: 44.7%. Electronically signed and approved by: Martin Moore M.D. Radiologis
--- NOTE | 2024-04-01 13:44 | MM ---
Risk Values: Lula 5 year model risk: 5.6%. NCI Lifetime model risk: 44.7%. Prior Study Comparison: 01/11/2019 Bilateral Screening Mammogram, [facility]. 01/11/2019 Bilateral Diagnostic Mammogram, [facility]. 07/08/2019 Bilateral Diagnostic Mammogram, [facility]. 01/07/2020 Bilateral Diagnostic Mammogram, [facility]. 07/07/2020 Left Diagnostic Mammogram, [facility]. 01/11/2021 Bilateral Screening Mammogram, [facility]. 01/13/2022 Bilateral MG 3D screening mammo w/cad, [facility]. 01/18/2023 Bilateral MG 3D diag mammo w/cad [facility], [facility]. 01/22/2024 Bilateral MG 3D diag mammo w/cad [facility], [facility]. Pathology Description: Location: middle. Approach: CC FA Needle Type: 9 cm Kopan Informed consent was obtained and all the patient's questions were answered. The microcalcifications in question was localized mammographically. The standard sterile technique was utilized, as well as appropriate local anesthesia with 1% Lidocaine and bicarbonate. Localization needle followed by placement of a guidewire was performed under mammographic guidance. Verification images demonstrate appropriate deployment of the guidewire. The patient tolerated the procedure well and left the department in stable condition. Specimen radiograph demonstrates the microcalcifications in question to reside within the specimen. IMPRESSION: Successful needle localization and open biopsy right breast with pathology results pending. [facility], , 03/20/2024 8:13 AM. Pathology Results: Result: High risk, Flat epithelial atypia. Pathology and radiology were reviewed. Findings are concordant. RIGHT BREAST TISSUE, EXCISION: Focal flat epithelial atypia (FEA) with associated microcalcification and rare atypical ductal hyperplasia (ADH). All margins benign. Proliferative fibrocystic change with usual ductal hyperplasia, apocrine metaplasia, columnar cell change, focal microcalcification, sclerosing adenosis and few benign small duct papillomas. Chronic mastitis with scar and prior biopsy site change present. Overall Assessment: High risk Management: Diagnostic Mammogram of the right breast in 6 months. Electronically signed and approved by: Martin Moore M.D. Radiologis
== END 2024-03-19 17:35 | disposition home or self-care (01) ==
LOC: OR 10:33
PROVIDERS: ATTEND Surgery
DX: N60.81 Other benign mammary dysplasias of right breast (principal); N60.21 Fibroadenosis of right breast; N61.0 Mastitis without abscess; R92.8 Other abnormal and inconclusive findings on diagnostic imaging of breast; Z80.1 Family history of malignant neoplasm of trachea, bronchus and lung; Z80.3 Family history of malignant neoplasm of breast; Z90.721 Acquired absence of ovaries, unilateral
CPT/HCPCS: 81025; 88307; 76098; 19281; 19301; C1819; J2250; J1200; J1644; J1100; J0690; J2405; J2003; J3010; J2704; J2371

== ENCOUNTER → 2024-04-04 | Outpatient (CLI) | payer OTHER ==
[2024-04-04 15:47] VITALS: BP 127/80; PULSE 71; RESP 16; TEMP 98.3
--- NOTE | 2024-04-04 15:53 | P.BCPO ---
Progress Note - Text Progress Note Date: 04/04/24 Shannan is a 43 year old status post right breast excisional biopsy on 03-19-24 which showed FEA and ADH. No cancer. She started having fluid discharge over the weekend. It is yellow in nature. Her norberto 5 year risk is 5.6% lifetime risk: 44.7% lungs: clear heart: RRR incision: breast swollen Impression: swollen right breat Plan: talk to medical oncology regarding high risk for breast cancer and possible chemo prophylaxis Attempted aspiration of probable seroma right breast Post Op Education - Post Op Education Post Op Education Provided Date: 04/04/24 - Functional Assessment Performed?: Yes (passed arm abduction) Path Report - Was patient given path report? Path Report Date Given: 04/04/24
== END ==
LOC: WWCWWP 14:57
PROVIDERS: ATTEND Surgery
DX: N63.10 Unspecified lump in the right breast, unspecified quadrant (principal); Z98.890 Other specified postprocedural states

== ENCOUNTER → 2024-04-12 | Outpatient (CLI) | payer OTHER ==
[2024-04-12 14:47] VITALS: BP 133/81; PULSE 56; RESP 15; TEMP 97.9
--- NOTE | 2024-04-12 15:03 | P.PN ---
Subjective Progress Note Date: 04/12/24 Progress Note - Text Progress Note Date: 04/04/24 Shannan is a 43 year old status post right breast excisional biopsy on 03-19-24 which showed FEA and ADH. No cancer. She started having fluid discharge over the weekend. It is yellow in nature. Her norberto 5 year risk is 5.6% lifetime risk: 44.7% lungs: clear heart: RRR incision: clean and Dry, no evidence of recurrent seroma; mild excoriation of the skin at the anterior aspect of the incision Impression: swollen right breast Plan: talk to medical oncology regarding high risk for breast cancer and possible chemo prophylaxis Attempted aspiration of probable seroma right breast MRI alternate q 6 months with mammogram next MRI in June 2024 Objective - Vital Signs Vital signs: Vital Signs Temp 97.9 F 04/12/24 14:44 Pulse 56 L 04/12/24 14:44 Resp 15 04/12/24 14:44 BP 133/81 04/12/24 14:44 Pulse Ox 100 04/12/24 14:44 FiO2 Intake & Output 04/11/24 04/12/24 04/12/24 18:59 06:59 18:59 Weight 68.039 kg
== END ==
LOC: WWCWWP 14:36
PROVIDERS: ATTEND Surgery
DX: R92.8 Other abnormal and inconclusive findings on diagnostic imaging of breast (principal); N63.10 Unspecified lump in the right breast, unspecified quadrant

== ENCOUNTER → 2024-07-11 | Outpatient (CLI) | payer OTHER ==
[2024-07-11 09:57] VITALS: BP 122/80; PULSE 77; RESP 17; TEMP 98.7
--- NOTE | 2024-07-11 10:29 | P.PN ---
Subjective Progress Note Date: 07/11/24 Principal diagnosis: high risk breast cancer 02/07/24 Principal diagnosis: abnormal right breast mammogram Principal diagnosis: high risk breast cancer abnormal bilateral mammogram 01-20-23 high risk breast cancer screening for breast disease High risk breast cancer/screening/prior abnormal mammogram Shannan underwent a routine baseline screening mammogram on 01-07-20 this revealed skin thickening and architectural distortion in the upper outer quadrant of the left breast. In the right breast there were grouped/clustered calcifications and asymmetric breast tissue in the medial upper aspect which was felt to be stable. This was felt to be benign BIRADS 3 and follow-up diagnostic mammogram of the left breast in 6 months was recommended. She had routine screening mammogram in December 2018. following this mammogram was recommended that bilateral additional views be obtained and additional views there was noted to be an 8 mm group of calcifications in the outer quadrant and middle depth of the left breast and left breast calcifications in the central upper and central lower breast. The left breast calcifications were noted to be heterogeneous and close to the skin these were indeterminant and surgical biopsy was recommended. On the right breast it was felt that these were most likely the possible fat necrosis and six-month follow-up was recommended for both groups of calcification in the right breast. She had a needle localization and excisional biopsy an 1119- for the microcalcifications in the left breast. The specimen did not reveal the microcalcifications. Pathology revealed proliferative fibrocystic changes including focal complex sclerosing lesion/radial scar with usual type ductal hyperplasia, fibrosis, cyst, and apocrine metaplasia. At that time the case was discussed with radiology as well as pathology and it was recommended she have a repeat mammogram at 6 months. This was repeated on July 072019. This revealed heterogeneously dense breast tissue and mag views on the left did not demonstrate any residual calcifications at the original left upper outer quadrant site. [place] on 9819 had repeat bilateral mammogram and repeat left breast mammogram in 6 months is recommended. Her repeat left breast mammogram and ultrasound were done on 07-07-20. These were benign BIRAD 2 and routine screening of both breast in 6 months recommended. She had a bilateral mammgram on 01-11-21. This was benign BIRAD 2. 01-20-22 Shannan does not feel any masses or nodules in her breasts. She does not complain any breast pain. She does not have any abnormal nipple discharge. She has no history of any trauma or infection in the breast. We did notice a change in pigmentation on the right nipple. She had a bilateral mammogram on 01-13-22 which was BIRAD 1. 07-28-22 Is not complaining of any new lumps masses or nodules of concern in either breast. She underwent a bilateral MRI on which did not reveal any le sions of concern in either breast. The patient had genetic testing done approximately 4 years ago and states she was negative. She is going to try to obtain a copy of that report. 01-20-23 Bilateral mammogram on 01-18-23 BIRAD 2 She is not complaining of any new lumps masses or nodules of concern in either breast. 02-01-24 Shannan is a 43-year-old female who is at high risk for breast cancer Ulla 5-year risk model 3.3% and NCI lifetime risk 35.9%. She has had a 25 pound weight loss since the past year and is noticed some changes in her breast related to the weight loss but otherwise no dominant masses or nodules of concern in either breast. The patient on 01-22-2024 underwent a bilateral mammogram. This revealed some new microcalcifications of concern in the right breast. The recommendation was for a diagnostic mammogram of the right breast patient views were performed at the time of the mammogram and calcifications were noted to have been increased and a stereotactic core biopsy was recommended. And a diagnostic ultrasound of the left breast. Ultrasound of the left breast was performed on 01-22-2024. The axilla of the left breast and retroareolar region of the left breast were scanned. There was an isoechoic area measuring 2.5 x 2.4 x 9 cm. The area corresponded to a prior lesion in 2020. Echogenicity appeared normal. Ultrasound of the left breast in 6 months was recommended. And a stereotactic core biopsy of the right breast was recommended. She had an attempt at a stero biopsy on 02-01-24. The area biopsied was benign with fibrocystic changes but not felt to represent the area on the right breast mammogram. Another attempt at stero biopsy was unsuccessful secondary to the thinness of the breast. After discussion with Dr. Hamilton a needle localization and resection of the area was recommended. Lula Risk: 5 year 3.1% lifetime risk: 36.3% We have discussed chemoprevention and the patient has declined. We've also discussed greater than 20% lifetime risk that she could alternate MRI with mammogram and she would like to pursue this. 07-11-24 She underwent right breast excisional biopsy on 03-19-24 pathology showed ADH. She has discussed chemoprevention with Dr. Sullivan and is more interested in surgery at this time. genetic testing done and (-) Lula Risk 5 year 5.6% lifetime risk 44.7% coffee: 4 cups/day The patient does not smoke and she is not exposed to secondhand smoke. She has chocolate occasionally. BCP: no She does not take hormones. Her menstrual periods are regular. Patient is a vegetarian and eats soy twice a week In 2003 her mother tested for BRACA and negative, both sisters tested the one that had cancer tested negative for any abnormalities, a second sister without cancer tested positive for PALB2. The patient is being tested for PALB 2 as well, she is negative. Family History: maternal grandmother: 39 breast cancer, of mets. maternal grandfather: multiple myloma paternal grandmother: leukemia paternal grandfather: pancreatic mother: breast cancer at 48 sister: lymphoma as a teenager, breast cancer at 39, doing well father: colon cancer paternal uncle: lung cancer maternal uncle: kidney cancer mother: skin cancer basal cell type maternal aunt: basal cell cancer Hormonal History: Menarche: 14 G0 periods regular, started yesterday BCP: used for 5 years, stopped 5 years ago hormones: none Past surgical history: 1. Laparotomy left ovary and fallopian tube removed 2. Lasic eye surgery Medical history: Negative Social history: Smoking: Negative alcohol: Occasional Drugs:none - Constitutional Constitutional: Denies chills, Denies fever - EENT Eyes: denies blurred vision, denies pain Ears: deny: decreased hearing, tinnitus Ears, nose, mouth and throat: Denies headache, Denies sore throat - Breasts Breasts: bilateral: as per HPI - Cardiovascular Cardiovascular: Denies chest pain, Denies shortness of breath - Respiratory Respiratory: Denies cough - Gastrointestinal Gastrointestinal: Denies abdominal pain, Denies diarrhea, Denies nausea, Denies vomiting - Menstruation Menstruation: Reports period normal - Musculoskeletal Musculoskeletal: Denies myalgias - Integumentary Integumentary: Denies pruritus, Denies rash - Neurological Neurological: Denies numbness, Denies weakness - Psychiatric Psychiatric: Denies anxiety, Denies depression - Endocrine Comment: hypothyroid - Hematologic/Lymphatic Comment: none Objective - Vital Signs Vital signs: Vital Signs Temp 98.7 F 07/11/24 09:52 Pulse 77 07/11/24 09:52 Resp 17 07/11/24 09:52 BP 122/80 07/11/24 09:52 Pulse Ox 98 07/11/24 09:52 FiO2 Intake & Output 07/10/24 07/11/24 07/11/24 18:59 06:59 18:59 Weight 68.039 kg - Constitutional General appearance: Present: cooperative - EENT Eyes: Present: EOMI ENT: Present: hearing grossly normal - Neck Neck: Present: normal ROM - Respiratory Respiratory: bilateral: CTA - Cardiovascular Rhythm: regular Heart sounds: normal: S1, S2 - Integumentary Integumentary: Present: normal turgor - Musculoskeletal Musculoskeletal: Present: gait normal - Psychiatric Psychiatric: Present: A&O x's 3, appropriate affect, intact judgment & insight - Additional findings Additional findings: Breast Exam: BRA: 34DD, left nipple complex is slightly higher than the right Inspection: grade 2/3 ptosis Palpation: right breast: fibrocystic changes no dominant masses or nodules of concern Right axilla: No adenopathy of concern Left breast: fibrocystic changes no dominant masses or nodules of concern Left axilla: No adenopathy of concern Assessment and Plan Assessment: Impression: Bilateral mammogram 01-22-2024 microcalcifications of concern right breast, diagnostic ultrasound of the left breast performed 01-22-2024 this revealed an isoechoic area at the 2 o'clock position near the left nipple corresponding to a prior study echogenicity appeared normal diagnostic mammogram of the left breast in 6 months BIRAD2; MRI 07-15-22 no lesions of concern Lula model lifetime risk of breast cancer 35.9, 3.3% Stero needle biopsy right breast unsuccessful for the area of concern on 02-01-24 needle localization and resection microcalcification of concern in the right breast/ ADH Continue alternating MRI and mammogram every 6 months secondary to high risk of breast cancer Plan: Bilateral breast MRI follow up after this We have discussed risk reduction secondary to her high risk of lifetime breast cancer being over 44%. She has met with medical oncology and discussed chemoprophylaxis and would prefer to have bilateral mastectomies. She is concerned regarding the side effects of tamoxifen and the fact that it would only be for 5 years. She has had an appointment with plastic surgery and would like to have a bilateral skin sparing mastectomy with immediate implant reconstruction. Given her extremely high lifetime risk of breast cancer prophylaxis is deemed to be medically very important. Difficult medical decision making regarding risk reduction was discussed with the patient. The concerns regarding the insurance company, the side effects of the hormone blocking agent, and the fact that it would only be taken for approximately 5 years were all discussed. Additionally risks and benefits of surgery were discussed. All of these variables being considered the patient would prefer to have a bilateral mastectomy with reconstruction. Cc: Dr. Mahoney
== END ==
LOC: WWCWWP 08:49
PROVIDERS: ATTEND Surgery
DX: C50.912 Malignant neoplasm of unspecified site of left female breast (principal); R92.0 Mammographic microcalcification found on diagnostic imaging of breast; Z80.3 Family history of malignant neoplasm of breast

== ENCOUNTER → 2024-08-09 | Outpatient (CLI) | payer OTHER ==
--- NOTE | 2024-08-13 12:48 | BMR ---
EXAM DATE: 08/09/2024 EXAM DESCRIPTION: MRI-Breast Bilat (W/WO Contrast) INDICATION: Strong family history of breast cancer. History of bilateral breast excision biopsies the latest 1 on the right in March 2024. COMPARISON: Prior MR dated 07/19/2023 CONTRAST: 8.9 cc Gadavist contrast material. TECHNIQUE: Multi sequence multiplanar MR imaging of the breasts was obtained. Subsequently, after the uneventful intravenous administration of Gadavist contrast material, 6 dynamic sequences were then obtained. Post processing was performed utilizing a [employer] CAD workstation. FINDINGS: The breasts are composed of heterogeneous fibroglandular tissue. There is moderate background parenchymal enhancement identified. No axillary or internal mammary lymphadenopathy. Lymph nodes with benign morphology are stable in the axillary regions. No adenopathy in the visualized mediastinum. The bone marrow signal intensity is unremarkable. T2 weighted images demonstrated a 2.5 x 1.3 cm T2 bright seroma in the upper outer quadrant of right posterior breast at the prior excision biopsy site. There is no dominant cystic lesion in the left breast. Trace amount of fluid in the pleural spaces likely physiological. Post contrast images demonstrated no abnormal enhancement in either breast to suggest malignancy including bilateral surgical sites. Several foci of progressive enhancements in both breasts are likely related to benign background parenchyma. There is no abnormal signal or enhancement in the chest wall or subcutaneous tissue. IMPRESSION: 1. No MR evidence of malignancy in either breast including bilateral excision biopsy sites. 2. No axillary or internal mammary lymphadenopathy. Final assessment: BI-RADS category 2: Benign findings MTDD
== END | disposition home or self-care (01) ==
LOC: RADMRIMAIN 05:55
PROVIDERS: ATTEND Surgery
DX: Z15.01 Genetic susceptibility to malignant neoplasm of breast (principal); Z80.3 Family history of malignant neoplasm of breast
CPT/HCPCS: 77049; A9585

== ENCOUNTER → 2024-08-15 | Outpatient (CLI) | payer OTHER ==
[2024-08-15 08:15] VITALS: BP 120/78; PULSE 97; RESP 17; TEMP 98
--- NOTE | 2024-08-15 08:46 | P.BCPN ---
Subjective Progress Note Date: 08/15/24 Principal diagnosis: high risk breast cancer 08-15-24 Principal diagnosis: high risk breast cancer abnormal bilateral mammogram 01-20-23 high risk breast cancer screening for breast disease High risk breast cancer/screening/prior abnormal mammogram Shannan underwent a routine baseline screening mammogram on 01-07-20 this revealed skin thickening and architectural distortion in the upper outer quadrant of the left breast. In the right breast there were grouped/clustered calcifications and asymmetric breast tissue in the medial upper aspect which was felt to be stable. This was felt to be benign BIRADS 3 and follow-up diagnostic mammogram of the left breast in 6 months was recommended. She had routine screening mammogram in December 2018. following this mammogram was recommended that bilateral additional views be obtained and additional views there was noted to be an 8 mm group of calcifications in the outer quadrant and middle depth of the left breast and left breast calcifications in the central upper and central lower breast. The left breast calcifications were noted to be heterogeneous and close to the skin these were indeterminant and surgical biopsy was recommended. On the right breast it was felt that these were most likely the possible fat necrosis and six-month follow-up was recommended for both groups of calcification in the right breast. She had a needle localization and excisional biopsy an for the microcalcifications in the left breast. The specimen did not reveal the microcalcifications. Pathology revealed proliferative fibrocystic changes including focal complex sclerosing lesion/radial scar with usual type ductal hyperplasia, fibrosis, cyst, and apocrine metaplasia. At that time the case was discussed with radiology as well as pathology and it was recommended she have a repeat mammogram at 6 months. This was repeated on July 072019. This revealed heterogeneously dense breast tissue and mag views on the left did not demonstrate any residual calc ifications at the original left upper outer quadrant [place]. [place] [id number] had repeat bilateral mammogram and repeat left breast mammogram in 6 months is recommended. Her repeat left breast mammogram and ultrasound were done on 07-07-20. These were benign BIRAD 2 and routine screening of both breast in 6 months recommended. She had a bilateral mammgram on 01-11-21. This was benign BIRAD 2. 01-20-22 Shannan does not feel any masses or nodules in her breasts. She does not complain any breast pain. She does not have any abnormal nipple discharge. She has no history of any trauma or infection in the breast. We did notice a change in pigmentation on the right nipple. She had a bilateral mammogram on 01-13-22 which was BIRAD 1. 07-28-22 Is not complaining of any new lumps masses or nodules of concern in either breast. She underwent a bilateral MRI on which did not reveal any lesions of concern in either breast. The patient had genetic testing done approximately 4 years ago and states she was negative. She is going to try to obtain a copy of that report. 01-20-23 Bilateral mammogram on 01-18-23 BIRAD 2 She is not complaining of any new lumps masses or nodules of concern in either breast. 02-01-24 Shannan is a 43-year-old female who is at high risk for breast cancer Lula 5-year risk model 3.3% and NCI lifetime risk 35.9%. She has had a 25 pound weight loss since the past year and is noticed some changes in her breast related to the weight loss but otherwise no dominant masses or nodules of concern in either breast. The patient on 01-22-2024 underwent a bilateral mammogram. This revealed some new microcalcifications of concern in the right breast. The recommendation was for a diagnostic mammogram of the right breast patient views were performed at the time of the mammogram and calcifications were noted to have been increased and a stereotactic core biopsy was recommended. And a diagnostic ultrasound of the left breast. Ultrasound of the left breast was performed on 01-22-2024. The axilla of the left breast and retroareolar region of the left breast were scanned. There was an isoechoic area measuring 2.5 x 2.4 x 9 cm. The area corresponded to a prior lesion in 2020. Echogenicity appeared normal. Ultrasound of the left breast in 6 months was recommended. And a stereotactic core biopsy of the right breast was recommended. She had an attempt at a stero biopsy on 02-01-24. The area biopsied was benign with fibrocystic changes but not felt to represent the area on the right breast mammogram. Another attempt at stero biopsy was unsuccessful secondary to the thinness of the breast. After discussion with Dr. Hamilton a needle localization and resection of the area was recommended. Lula Risk: 5 year 3.1% lifetime risk: 36.3% We have discussed chemoprevention and the patient has declined. We've also discussed greater than 20% lifetime risk that she could alternate MRI with mammogram and she would like to pursue this. 07-11-24 She underwent right breast excisional biopsy on 03-19-24 pathology showed ADH. She has discussed chemoprevention with Dr. Sullivan and is more interested in surgery at this time. genetic testing done and (-) Bilateral breast MRI on 08-09-24 BIRAD 2 Lula Risk 5 year 5.6% lifetime risk 44.7% coffee: 4 cups/day The patient does not smoke and she is not exposed to secondhand smoke. She has chocolate occasionally. BCP: no She does not take hormones. Her menstrual periods are regular. Patient is a vegetarian and eats soy twice a week In 2003 her mother tested for BRACA and negative, both sisters tested the one that had cancer tested negative for any abnormalities, a second sister without cancer tested positive for PALB2. The patient is being tested for PALB 2 as well, she is negative. Family History: maternal grandmother: 39 breast cancer, of mets. maternal grandfather: multiple myloma paternal grandmother: leukemia paternal grandfather: pancreatic mother: breast cancer at 48 sister: lymphoma as a teenager, breast cancer at 39, doing well father: colon cancer paternal uncle: lung cancer maternal uncle: kidney cancer mother: skin cancer basal cell type maternal aunt: basal cell cancer Hormonal History: Menarche: 14 G0 periods regular, started yesterday BCP: used for 5 years, stopped 5 years ago hormones: none Past surgical history: 1. Laparotomy left ovary and fallopian tube removed 2. Lasic eye surgery Medical history: Negative Social history: Smoking: Negative alcohol: Occasional Drugs:none - Constitutional Constitutional: Denies chills, Denies fever - EENT Eyes: denies blurred vision, denies pain Ears: deny: decreased hearing, tinnitus Ears, nose, mouth and throat: Denies headache, Denies sore throat - Breasts Breasts: bilateral: as per HPI - Cardiovascular Cardiovascular: Denies chest pain, Denies shortness of breath - Respiratory Respiratory: Denies cough - Gastrointestinal Gastrointestinal: Denies abdominal pain, Denies diarrhea, Denies nausea, Denies vomiting - Menstruation Menstruation: Reports period normal - Musculoskeletal Musculoskeletal: Denies myalgias - Integumentary Integumentary: Denies pruritus, Denies rash - Neurological Neurological: Denies numbness, Denies weakness - Psychiatric Psychiatric: Denies anxiety, Denies depression - Endocrine Comment: hypothyroid - Hematologic/Lymphatic Comment: none Objective - Vital Signs Vital Signs: Vital Signs Temp 98 F 08/15/24 08:12 Pulse 97 08/15/24 08:12 Resp 17 08/15/24 08:12 BP 120/78 08/15/24 08:12 Pulse Ox 97 08/15/24 08:12 FiO2 Intake & Output 08/14/24 08/15/24 08/15/24 18:59 06:59 18:59 Weight 68.039 kg - Constitutional General appearance: Present: cooperative - EENT Eyes: Present: EOMI ENT: Present: hearing grossly normal - Neck Neck: Present: normal ROM - Breast Breast-Narrative: Breast Exam: BRA: 34DD, left nipple complex is slightly higher than the right Inspection: grade 2/3 ptosis Palpation: right breast: fibrocystic changes no dominant masses or nodules of concern Right axilla: No adenopathy of concern Left breast: fibrocystic changes no dominant masses or nodules of concern Left axilla: No adenopathy of concern Ptosis: Grade 3: Right Breast Ptosis, Left Breast Ptosis Right Breast Palpation (Multi-positional): No dominant masses, Fibrocystic Changes Left Breast Palpation (Multi-positional): No dominant masses, Fibrocystic Changes Right Axilla Palpation: No adenopathy of concern Left Axilla Palpation: No adenopathy of concern - Respiratory Respiratory: bilateral: CTA - Cardiovascular Rhythm: regular Heart sounds: normal: S1, S2 - Integumentary Integumentary: Present: normal turgor - Musculoskeletal Musculoskeletal: Present: gait normal - Psychiatric Psychiatric: Present: A&O x's 3, appropriate affect, intact judgment & insight Assessment and Plan Plan: Impression: Bilateral mammogram 01-22-2024 microcalcifications of concern right breast, diagn ostic ultrasound of the left breast performed 01-22-2024 this revealed an isoechoic area at the 2 o'clock position near the left nipple corresponding to a prior study echogenicity appeared normal diagnostic mammogram of the left breast in 6 months BIRAD2; MRI 07-15-22 no lesions of concern Lula model lifetime risk of breast cancer 35.9, 3.3% Stero needle biopsy right breast unsuccessful for the area of concern on 02-01-24 needle localization and resection microcalcification of concern in the right breast/ ADH Continue alternating MRI and mammogram every 6 months secondary to high risk of breast cancer discussed with the patient Plan: Bilateral breast MRI follow up after this; this was done on 08-09-2024 and was considered BI-RADS 2 We have discussed risk reduction secondary to her high risk of lifetime breast cancer being over 44%. She has met with medical oncology and discussed chemoprophylaxis and would prefer to have bilateral mastectomies. She is concerned regarding the side effects of tamoxifen and the fact that it would only be for 5 years. She has had an appointment with plastic surgery and would like to have a bilateral skin sparing mastectomy with immediate implant reconstruction. Given her extremely high lifetime risk of breast cancer prophylaxis is deemed to be medically very important. Difficult medical decision making regarding risk reduction was discussed with the patient. The concerns regarding the insurance company, the side effects of the hormone blocking agent, and the fact that it would only be taken for approximately 5 years were all discussed. Additionally risks and benefits of surgery were discussed. All of these variables being considered the patient would prefer to have a bilateral mastectomy with reconstruction. Bilateral mastectomy with immediate implant reconstruction Cc: Dr. Mahoney Additional CC's: Khushbu Mahoney Prep Education Provided - Preoperative Education Given Pre-Op Kit Given Date: 08/15/24 - Functional Assessment Performed?: Yes (passed arm abduction) - Smoking Cessation Education Provided?: No (non smoker)
== END ==
LOC: WWCWWP 08:00
PROVIDERS: ATTEND Surgery
DX: Z12.31 Encounter for screening mammogram for malignant neoplasm of breast (principal)

== ENCOUNTER 2024-08-27 11:55 | Day surgery (SDC) | payer OTHER ==
[~2024-08-27 11:55] MED LIST changes: -HYDROmorphone 0.5 MG/0.5 ML SYRINGE IVP PRN; +LIDOCAINE 1% (10MG/ML) FOR IV START INTRADERMA PRN; +MIDAZOLAM 2 MG/2 ML VIAL IV PRN; +fentaNYL (PF) 50 MCG/ML 2 ML AMP IVP PRN
[2024-08-27] MEDS: LACTATED RINGERS 1,000 ML IV SCH (12:50)
[2024-08-27] MEDS: IV FLUID CONTINUATION 1,000 ML IV ONE (12:50)
[2024-08-27] MEDS: ONDANSETRON 4 MG/2 ML VIAL IVP ONE (12:53)
[2024-08-27] MEDS: DEXAMETHASONE SOD PHOSPHATE 4 MG/ML 1 ML VIAL IV ONE (12:54)
[2024-08-27] MEDS ORDERED: PROPOFOL 10 MG/ML 20 ML VIAL IV ONE (13:20)
[2024-08-27] MEDS ORDERED: ROCURONIUM 10 MG/ML (5 ML VIAL) IV ONE (13:20)
[2024-08-27] MEDS ORDERED: SUCCINYLCHOLINE CHLORIDE 200 MG/10 ML VIAL IV ONE (13:20)
[2024-08-27] MEDS ORDERED: LIDOCAINE 4% LTA KIT (4 ML) TOPICAL ONE (13:20)
[2024-08-27] MEDS ORDERED: GLYCOPYRROLATE 0.2 MG/ML 2 ML VIAL ONE (13:20)
[2024-08-27] MEDS ORDERED: MIDAZOLAM 2 MG/2 ML VIAL ONE (13:20)
[2024-08-27] MEDS ORDERED: fentaNYL (PF) 50 MCG/ML 2 ML AMP ONE (13:20)
[2024-08-27] MEDS ORDERED: PHENYLEPHRINE-0.9% NACL SYG 1,000 MCG/10 ML SYRINGE ONE (13:20)
[2024-08-27] MEDS ORDERED: KETAMINE HCL IN 0.9 % NACL 50 MG/5 ML SYRINGE ONE (13:20)
[2024-08-27] MEDS ORDERED: diphenhydrAMINE 50 MG/ML 1 ML VIAL ONE (13:20)
[2024-08-27] MEDS ORDERED: LIDOCAINE 1% INJ 10MG/ML (20 ML MDV) ONE (13:20)
[2024-08-27] MEDS: ceFAZolin 2 GM in DEXTROSE 5% IN WATER 50 ML IVPB PRN (13:25)
[2024-08-27] MEDS: LACTATED RINGERS 1,000 ML IV ONE ×2 (14:39→15:50)
[2024-08-27] MEDS ORDERED: NALOXONE 0.4 MG/ML 1 ML VIAL IV PRN (14:54)
[2024-08-27] MEDS ORDERED: HYDROmorphone 1 MG/ML 1 ML SYRINGE IVP PRN (14:54)
--- NOTE | 2024-08-27 14:54 | P.BCAON ---
Date of Procedure: 08/27/24 Preoperative Diagnosis: High risk breast cancer Postoperative Diagnosis: Same Procedure(s) Performed: Bilateral skin sparing mastectomy Anesthesia: MISSY Surgeon: Maira Joyce Estimated Blood Loss (ml): 50 IV fluids (ml): 900 Pathology: other (Bilateral mastectomies) Condition: stable Disposition: floor Indications for Procedure: High risk of breast cancer Operative Findings: Dense breast tissue Description of Procedure: The patient is a 44-year-old female with high risk for breast cancer. After talking about different prophylaxis methods she chose bilateral skin sparing mastectomies with immediate implant reconstruction. She was seen first in the preoperative area by plastic surgery Dr. Estrada. Markings were placed for the skin sparing mastectomies. She was then brought to the operative suite. Following induction of anesthesia both breasts were prepped and draped in a sterile fashion. The right breast was approached initially. A vertical incision was utilized for the mastectomy. Incision was made through the skin and subcutaneous tissue at the vertical incision markings.. Using curved Luna's and traction on the breast blunt dissection was performed to develop the skin flaps. Skin flaps were developed circumferentially. This was done down to the pectoralis muscle. Following this the breast was removed from medial to lateral off the pectoralis muscle. Any areas of bleeding were controlled using the harmonic scalpel or the electrocautery device. At 1 point a vessel was identified and suture-ligated. After this the breast was removed and marked for orientation. A short suture was superior and a long suture was lateral. The wound was well irrigated. The wound was packed. At this point the left side was approached. On the left side A vertical incision was utilized for the mastectomy. An incision was made through the skin and subcutaneous tissue at the vertical incision markings. Using curved Luna's and traction on the breast blunt dissection was performed to develop the skin flaps. Skin flaps were developed circumferentially. This was done down to the pectoralis muscle. Following this the breast was removed from medial to lateral off the pectoralis muscle. Any areas of bleeding were controlled using the harmonic scalpel or the electrocautery device. At 1 point a vessel was identified and suture-ligated. After this the breast was removed and marked for orientation. At this point Dr. Estrada placed to the prepectoral implant expanders.
[2024-08-27] MEDS: HYDROmorphone 0.5 MG/0.5 ML SYRINGE IVP PRN (17:08)
[2024-08-27] MEDS: DEXTROSE 5%-0.45% NACL 1,000 ML IV SCH (19:53)
[2024-08-27] MEDS: HEPARIN SODIUM,PORCINE 5,000 UNIT/ML 1 ML VIAL SQ SCH (20:08)
[2024-08-27] MEDS: ONDANSETRON 4 MG/2 ML VIAL IVP PRN (20:08)
[2024-08-27 22:36] LABS: Glucose,Whole Blood 139 mg/dL (70-110)
[2024-08-27 22:40] LABS: Basophils # (A) 0.02 10*3/uL (0.00-0.10); Basophils % (A) 0.2 %; HCT 31.5 % (37.2-46.3); HGB 10.6 g/dL (12.0-15.0); Lymphocytes # (A) 0.74 10*3/uL (0.90-5.00); Lymphocytes % (A) 6.1 %; MCH 31.9 pg (27.0-32.0); MCHC 33.7 g/dL (32.0-37.0); MCV 94.9 fL (80.0-97.0); Mean Platelet Volume 10.9 fL (9.5-12.2); Monocytes # (A) 0.46 10*3/uL (0.20-1.00); Monocytes % (A) 3.8 %; Neutrophils # (A) 10.95 10*3/uL (1.80-7.70); Neutrophils % (A) 89.4 %; Platelet Count 287 10*3/uL (140-440); RBC 3.32 10*6/uL (4.10-5.20); RDW 12.6 % (11.5-14.5); WBC 12.23 10*3/uL (4.50-10.00)
[2024-08-27] MEDS: SODIUM CHLORIDE 0.9% 1,000 ML IV ONE ×2 (22:40→23:40)
[2024-08-27] MEDS ORDERED: LACTATED RINGERS 1,000 ML IV ONE (22:56)
[2024-08-27 22:59] VITALS: RESP 16
--- NOTE | 2024-08-27 23:04 | P.PN ---
Subjective Progress Note Date: 08/27/24 Principal diagnosis: Hypotension/bradycardia I was called to see the patient as she was complaining of lightheadedness and abdominal discomfort. She was also noted to have a systolic blood pressure reportedly in the 60s and a heart rate in the 40s. When I arrived to see her he r systolic blood pressure was 97 and her heart rate was in the 50s. Evaluation of her surgical sites revealed incisions bilateral in the breast to be clean and dry. She had minimal swelling and LUCAS output was serous from both drains. Lungs: Clear Heart: Regular rate and rhythm Abdomen: Soft with no guarding or rebound, but tender in the low mid abdomen There has been a total of 70 cc of LUCAS output. A CBC was obtained stat and hemoglobin was noted to be 10.6. Impression: Postoperative hypotension/bradycardia/possible vagal reaction Plan: consult medicine Fluid bolus Type and screen Transfer to a monitored bed Close surveillance Repeat CBC in a.m. Objective - Vital Signs Vital signs: Vital Signs Temp 98.6 F 08/27/24 18:30 Pulse 66 08/27/24 19:45 Resp 14 08/27/24 19:00 BP 86/54 08/27/24 19:45 Pulse Ox 95 08/27/24 19:31 FiO2 Intake & Output 08/27/24 08/27/24 08/28/24 06:59 18:59 06:59 Intake Total 2550 Output Total 200 70 Balance 2350 -70 Weight 72.7 kg Intake: IV 2550 Output: Drainage 70 Left Breast 20 Right Breast 50 Urine 100 Estimated Blood Loss 100 - Labs CBC & Chem 7: 08/27/24 22:23 Labs: Abnormal Lab Results - Last 24 Hours (Table) 08/27/24 08/27/24 Range/Units 22:23 22:33 WBC 12.23 H (4.50-10.00) 10*3/uL RBC 3.32 L (4.10-5.20) 10*6/uL Hgb 10.6 L (12.0-15.0) g/dL Hct 31.5 L (37.2-46.3) % Immature Gran # 0.06 H (0.00-0.04) 10*3/uL Neutrophils # 10.95 H (1.80-7.70) 10*3/uL Lymphocytes # 0.74 L (0.90-5.00) 10*3/uL Eosinophils # 0.00 L (0.04-0.35) 10*3/uL POC Glucose (mg/dL) 139 H (70-110) mg/dL
--- NOTE | 2024-08-27 23:07 | OP ---
OPERATIVE REPORT DATE OF SERVICE : 08/27/2024 PREOPERATIVE DIAGNOSES: 1. Acquired absence, right breast. 2. Acquired absence, left breast. 3. 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 POSTOPERATIVE DIAGNOSES: 1. Acquired absence, right breast. 2. Acquired absence, left breast. 3. 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 OPERATIVE PROCEDURES: 1. Immediate reconstruction of right breast following mastectomy with insertion of tissue salt manager and subsequent outpatient expansion. 2. Immediate reconstruction of left breast following mastectomy with insertion of tissue salt manager, subsequent outpatient expansion. 3. Implantation of reconstructive graft for right and left breast reconstruction. 4. Local tissue rearrangement with lipodermal flaps for right and left breast reconstruction, combined area 102 square cm. OPERATIVE INDICATIONS: The patient is a 44-year-old female with genetic predisposition to breast cancer. She elected to proceed with bilateral mastectomy procedures with immediate breast reconstruction. The patient has significant breast ptosis and is aware she will need local tissue rearrangement to optimize her reconstructive result in addition to placement of expanders and grafts in a prepectoral space. She is also aware of potential risks and complications of the surgery including, but not limited to hematoma, seroma, wound healing problems, infection, among others. She has requested I perform the surgeries. OPERATIVE PROCEDURE SUMMARY: The patient was seen in the preoperative area, markings made. Procedure reviewed. All questions answered. She was transported to the operating room where she was placed in supine position. Following induction of general anesthesia, the patient was prepped and draped in usual fashion. Dr. Joyce and her surgical team proceeded with the right-sided mastectomy procedure. I did assist during this portion of the procedure. Dr. Joyce then proceeded with the left-sided mastectomy procedure. I also assisted here with both mastectomies complete. Mastectomy wounds were open. Hemostasis was excellent. I proceeded with the breast reconstruction beginning on the right side. Additional elevation of skin and subcutaneous tissue was performed where necessary to optimize position of salt manager. This was also performed on the left side. Then, tissue expanders were opened onto the field based on measurements taken of the mastectomy dissection plane. Both expanders were from the [employer] 133 S-FX tissue salt manager line measuring 650 mL, reference #133 [id number], the serial number for the right side was [id number] and serial number for the left side was [id number]. The right side was opened first, all air extracted from the device, irrigated with saline and then filled to initial volume of 450 mL and placed for test fitting in the reconstructive cavity. However, this was too much volume 50 mL were removed. This appeared optimal, would allow for closure. The salt manager was removed, placed in a saline bath. This left-sided salt manager was opened on the field. Again, all air extracted and filled to a volume of 400 mL and placed for test fitting which was optimal. Both expanders were placed in a saline bath and labled per side. Reconstructive graft materials now opened on the field. AlloDerm Select Restore tissue matrix measuring 327 cm perforated, large and thin was opened on the field. Two pieces were ultimately opened. The right side opened first. It was rinsed several times in saline and then placed over the anterior surfaces of the salt manager and secured to the suture tabs using 2-0 Vicryl suture. The left-sided piece was then opened and rinsed several times in saline and then in the same fashion placed to cover the anterior surface of the left-sided tissue salt manager, securing the suture tabs with 2-0 Vicryl. The breast mastectomy cavities were now irrigated with saline. Hemostasis was optimal. Two 19 round Tahir drains inserted in the surgical field, brought through separate stab incisions in the left and right anterior lateral chest wall and sutured in place with 2- 0 Prolene. The expanders were now placed in the respective reconstructive cavity locations. The right-sided salt manager was secured to the chest wall using the suture tabs and 2-0 Vicryl suture and then the left-sided tissue salt manager secured with the suture tabs to the chest wall with 2-0 Vicryl sutures. The mastectomy site closure now require local tissue rearrangement. This allowed buttressing of the lateral aspect to create more round and perky like breast shape. The lipodermal flaps were created, measured 8 x 6 square cm on the right side and 9 x 6 square cm on the left side. They were first marked with a skin marker, de-epithelialized with a 10 blade scalpel and then the flap material tucked into the lateral space creating a slight fullness, although there had been some hollowness. This was on the right and left side. The dermal edges were then approximated using inverted 4-0 Monocryl in the remaining portion. Open mastectomy wound was closed with a dermal layer using inverted interrupted 4-0 Monocryl, followed by closure of superficial dermis and epidermis with short running 5-0 Prolene. The surgical magallon cleansed with saline, dried, and the suture repair was covered with 1-inch paper tape. Biopatch was placed. Each drain site covered by a medium Tegaderm. Kerlix roll gauze was then placed over the incision, secured with 3M Medipore tape, and a size 3 white mammary support positioned prior to awakening the patient. The patient was awakened from anesthetic and transferred to the recovery room in good condition with stable vital signs. There were no complications. The final fill of each salt manager was 400 mL. MMODL / IJN: [id number] /
[2024-08-27 23:28] LABS: African American GFR (CKD) >90 (>60 ml/min/1.73 sqM); Anion Gap 10 mmol/L; Blood Urea Nitrogen 16 mg/dL (7-17); Calcium 8.8 mg/dL (8.4-10.2); Carbon Dioxide 19 mmol/L (22-30); Chloride 104 mmol/L (98-107); Glucose 127 mg/dL (74-99); Non-African American GFR(CKD) >90 (>60 ml/min/1.73 sqM); Sodium 133 mmol/L (137-145)
[2024-08-27 23:32] LABS: Potassium 4.8 mmol/L (3.5-5.1)
[2024-08-27] MEDS: SODIUM CHLORIDE 0.9% 1,000 ML IV SCH (23:59)
[2024-08-28] MEDS ORDERED: SODIUM CHLORIDE 0.9% 1,000 ML IV ONE (00:19)
--- NOTE | 2024-08-28 02:03 | P.CONS ---
History of Present Illness - Reason for Consult Consult date: 08/28/24 medcial management Requesting physician: Maira Joyce - History of Present Illness Patient is a 44-year-old female with asthma, hypothyroidism breast CA status post bilateral skin sparing mastectomy here for medical evaluation of hypotension and bradycardia around 10PM. Patient was recently postop around 6:30 PM when her blood pressure has stayed at the systolics 80 to 90s and diastolics in the 50s to 60s. Patient at bedside reported to feel warm, nauseous and dizzy, with colicky abdominal pain at the lower quadrants. She denied chest pain, shortness of breath, lightheadedness, focal weakness, palpitations, bleeding, bruising. Her last pain medication was around 5:30 PM IV Dilaudid. CBC showed WBC 12.2, hemoglobin 10.6 platelet count 287,000, sodium 133, potassium 4.8, bicarb 19, glucose 127, calcium 8.8. Blood pressure 97 /59, heart rate 53, O2 saturation 96% on room air Review of systems: Pertinent positives and negatives as discussed in HPI, a complete review of syst ems was performed and all other systems are negative. Physical examination: Vital signs reviewed General: non toxic, no distress, appears at stated age, room air Derm: no unusual rashes/lesions, warm Head: atraumatic, normocephalic, symmetric, diaphoretic Eyes: EOMI, anicteric sclera, pupils equal round reactive to light ENT: Nose and ears atraumatic Neck: No cervical lymphadenopathy, trachea midline, supple Mouth: no lip lesion, mucus membranes moist Cardiovascular: S1S2 reg, no murmur Lungs: CTA bilateral, no rhonchi, no rales, no accessory muscle use Abdominal: soft, nondistended, nontender to palpation, no guarding Ext: muscle strength 5 out of 5 in all 4 extremities grossly, no gross muscle atrophy, no contractures, positive dorsalis pedis pulse bilateral, no edema Neuro: CN II-XI grossly intact, no gross focal neuro deficits Psych: Alert, oriented, appropriate affect and mood Assessment/Plan: #. Postoperative Hypotension and bradycardia likely due to vasovagal response #. Normocytic anemia likley due to blood loss postop -Given 2L 0.9NS bolus. -Continue IVF 0.9 NS 130cc/hr -Monitor UO and vital signs -Pain control as needed -Monitor CBC. Transfuse if Hgb <7 goal urine output >120 cc per 4 hours #. Chronic conditions: Asthma, hypothyroidism -Continue Synthroid 88 mcg daily #. Breast CA status post bilateral skin sparing mastectomy -DVT prophylaxis and pain control be managed by primary surgical team -Continue incentive spirometry We appreciate being part of this patient's care. Thank you for this consult. Marcella Raymond MD PGY-1/[employer] Internal Medicine Dictation was produced using [employer] dictation software. please excuse any grammatical, word or spelling errors. I have seen and evaluated the patient today. I Discussed the case with the resid ent and agree with the resident's findings I edited the assessment and plan as necessary as documented in the resident's note. Past Medical History Past Medical History: Asthma, Thyroid Disorder Additional Past Medical History / Comment(s): Asthma as child. Hx Fibroma on Lt ovary. Bilat. breast calcification, hypothyroidism History of Any Multi-Drug Resistant Organisms: None Reported Past Surgical History: Breast Surgery Additional Past Surgical History / Comment(s): Laparotomy Lt tube & ovary removed, Lasik eye surg., excisional left breast bx, attempted needle biopsy Rt. breast, excisional right breast bx. Past Anesthesia/Blood Transfusion Reactions: Previous Problems w/ Anesthesia, Family History of Problems w/ Anesthesia, Motion Sickness, Postoperative Nausea & Vomiting (PONV) Additional Past Anesthesia/Blood Transfusion Reaction / Comm: Problem with epidural anesthesia, went into wrong space - needed epidural blood patch. States she had rash/hives after laparotomy and left breast bx- not sure what caused reaction, no problem w/ colonoscopy or right breast bx. Pt.'s mother also has PONV, motion sickness. Past Psychological History: No Psychological Hx Reported Smoking Status: Never smoker Past Alcohol Use History: Occasional Additional Past Alcohol Use History / Comment(s): 1-2 drinks/week - advised no alcohol 24 hrs prior to surg. Past Drug Use History: None Reported - Past Family History Father Family Medical History: Cancer Additional Family Medical History / Comment(s): colon cancer Mother Sister(s) Family Medical History: Cancer Additional Family Medical History / Comment(s): Breast CA. Maternal grandmother brest cancer Sister(s) Family Medical History: Cancer Additional Family Medical History / Comment(s): hodgkins, breast Ca Medications and Allergies Home Medications Medication Instructions Recorded Confirmed Type Levothyroxine Sodium [Synthroid] 88 mcg PO DAILY 02/01/19 08/27/24 History Ibuprofen [Motrin Ib] 400 mg PO BID PRN 03/27/23 08/27/24 History Acetaminophen Tab [Tylenol Tab] 1,000 mg PO Q6HR PRN 03/15/24 08/27/24 History Cyanocobalamin [Vitamin B-12] 500 mcg PO MOWEFR 03/15/24 08/27/24 History oxyCODONE HCL [OxyIR] 5 mg PO Q6H PRN 3 Days #20 tab 08/27/24 Rx Allergies Allergy/AdvReac Type Severity Reaction Status Date / Time No Known Allergies Allergy Verified 08/27/24 12:30 Physical Exam Vitals: Vital Signs Temp Pulse Resp BP Pulse Ox 08/27/24 20:00 61 16 92/59 96 08/27/24 19:45 66 86/54 08/27/24 19:31 95 08/27/24 19:30 61 86/54 08/27/24 19:15 67 90/57 95 08/27/24 19:00 58 L 14 88/54 95 08/27/24 18:45 73 14 90/55 97 08/27/24 18:30 98.6 F 64 12 93/57 94 L 08/27/24 18:15 78 16 87/53 94 L 08/27/24 18:00 84 16 86/51 94 L 08/27/24 17:45 78 16 81/45 95 08/27/24 17:30 69 16 99/58 100 08/27/24 17:15 73 16 102/63 100 08/27/24 17:00 66 16 96/57 100 08/27/24 16:45 79 16 114/65 100 08/27/24 16:34 97.7 F 84 14 110/57 100 08/27/24 12:49 97.8 F 72 12 108/61 99 Intake and Output 08/27/24 08/27/24 08/28/24 14:59 22:59 06:59 Intake Total 2049 500 Output Total 270 Balance 2049 230 Intake: IV 2049 500 Output: Drainage 70 Left Breast 20 Right Breast 50 Urine 100 Estimated Blood Loss 100 Other: Weight 72.7 kg 72.7 kg Results CBC & Chem 7: 08/27/24 22:23 08/27/24 23:00 Labs: Abnormal Lab Results - Last 24 Hours (Table) 08/27/24 08/27/24 08/27/24 Range/Units 22:23 22:33 23:00 WBC 12.23 H (4.50-10.00) 10*3/uL RBC 3.32 L (4.10-5.20) 10*6/uL Hgb 10.6 L (12.0-15.0) g/dL Hct 31.5 L (37.2-46.3) % Immature Gran # 0.06 H (0.00-0.04) 10*3/uL Neutrophils # 10.95 H (1.80-7.70) 10*3/uL Lymphocytes # 0.74 L (0.90-5.00) 10*3/uL Eosinophils # 0.00 L (0.04-0.35) 10*3/uL Sodium 133 L (137-145) mmol/L Carbon Dioxide 19 L (22-30) mmol/L Glucose 127 H (74-99) mg/dL POC Glucose (mg/dL) 139 H (70-110) mg/dL
[2024-08-28 05:32] VITALS: TEMP 98.4
[2024-08-28] MEDS: LEVOTHYROXINE 88 MCG TAB PO SCH (05:43)
[2024-08-28 06:45] LABS: Basophils # (A) 0.02 10*3/uL (0.00-0.10); Basophils % (A) 0.3 %; HCT 28.6 % (37.2-46.3); HGB 9.5 g/dL (12.0-15.0); Lymphocytes # (A) 1.66 10*3/uL (0.90-5.00); MCH 31.7 pg (27.0-32.0); MCHC 33.2 g/dL (32.0-37.0); MCV 95.3 fL (80.0-97.0); Mean Platelet Volume 10.8 fL (9.5-12.2); Monocytes # (A) 0.61 10*3/uL (0.20-1.00); Monocytes % (A) 7.7 %; Neutrophils # (A) 5.61 10*3/uL (1.80-7.70); Neutrophils % (A) 70.7 %; Platelet Count 247 10*3/uL (140-440); RDW 12.9 % (11.5-14.5); WBC 7.92 10*3/uL (4.50-10.00)
[2024-08-28] MEDS: ACETAMINOPHEN IV (For NPO) 1,000 MG in EMPTY BAG 1 BAG IVPB STA (09:02)
--- NOTE | 2024-08-28 09:36 | P.PN ---
Subjective Progress Note Date: 08/28/24 Principal diagnosis: Postop day #1 bilateral skin sparing mastectomy with lead generator placement The patient is feeling much better this morning. Last night she had an episode of bradycardia and hypotension most likely vagal in nature. Her hemoglobin at that time was 10.6. Her hemoglobin this morning is 9.5. She states she is hungry this morning. She is not complaining of feeling dizzy at this time. She is not complaining of any more abdominal pain. She has incisional discomfort and is given IV Tylenol. Objective - Vital Signs Vital signs: Vital Signs Temp 98.4 F 08/28/24 05:10 Pulse 91 08/28/24 05:10 Resp 16 08/28/24 05:10 BP 96/55 08/28/24 05:10 Pulse Ox 96 08/28/24 05:10 FiO2 Intake & Output 08/27/24 08/28/24 08/28/24 18:59 06:59 18:59 Intake Total 2550 50 Output Total 200 650 Balance 2350 -600 Weight 72.7 kg Intake: IV 2550 Oral 50 Output: Drainage 100 Left Breast 30 Right Breast 70 Urine 100 550 Uretheral (Tatum) 400 Estimated Blood Loss 100 Other: Voiding Method Indwelling Catheter - Constitutional General appearance: Present: cooperative - EENT Eyes: Present: EOMI ENT: Present: hearing grossly normal - Neck Neck: Present: normal ROM - Respiratory Respiratory: bilateral: CTA - Cardiovascular Rhythm: regular Heart sounds: normal: S1, S2 - Integumentary Integumentary Comment(s): Lateral breast clean and dry, no evidence of hematoma LUCAS left 10 cc serosanguineous LUCAS right 20 cc serosanguineous - Labs CBC & Chem 7: 08/28/24 06:17 08/27/24 23:00 Labs: Abnormal Lab Results - Last 24 Hours (Table) 08/27/24 08/27/24 08/27/24 Range/Units 22:23 22:33 23:00 WBC 12.23 H (4.50-10.00) 10*3/uL RBC 3.32 L (4.10-5.20) 10*6/uL Hgb 10.6 L (12.0-15.0) g/dL Hct 31.5 L (37.2-46.3) % Immature Gran # 0.06 H (0.00-0.04) 10*3/uL Neutrophils # 10.95 H (1.80-7.70) 10*3/uL Lymphocytes # 0.74 L (0.90-5.00) 10*3/uL Eosinophils # 0.00 L (0.04-0.35) 10*3/uL Sodium 133 L (137-145) mmol/L Carbon Dioxide 19 L (22-30) mmol/L Glucose 127 H (74-99) mg/dL POC Glucose (mg/dL) 139 H (70-110) mg/dL 08/28/24 Range/Units 06:17 WBC (4.50-10.00) 10*3/uL RBC 3.00 L (4.10-5.20) 10*6/uL Hgb 9.5 L (12.0-15.0) g/dL Hct 28.6 L (37.2-46.3) % Immature Gran # (0.00-0.04) 10*3/uL Neutrophils # (1.80-7.70) 10*3/uL Lymphocytes # (0.90-5.00) 10*3/uL Eosinophils # 0.00 L (0.04-0.35) 10*3/uL Sodium (137-145) mmol/L Carbon Dioxide (22-30) mmol/L Glucose (74-99) mg/dL POC Glucose (mg/dL) (70-110) mg/dL Assessment and Plan Assessment: Impression: Patient postop day #1 bilateral mastectomy with pre-pectoral lead generator placement reconstruction Hemoglobin 9.5 down from 10.6 last night Patient is hungry this morning Probable vagal episode last night Plan: Repeat CBC at noon Patient will start diet Monitor as per medicine
[2024-08-28 09:52] VITALS: BP 100/62; PULSE 84
--- NOTE | 2024-08-28 11:13 | P.PN ---
Subjective Progress Note Date: 08/28/24 Patient was seen and examined. Reports some positional lightheadedness this morning. BP 100/62, HR 84. CBC significant for RBC 3, Hg 9.5, Hct 28.6. General: non toxic, no distress, appears at stated age Derm: warm, dry Head: atraumatic, normocephalic, symmetric Mouth: no lip lesion, mucus membranes moist Cardiovascular: good distal perfusion in all 4 extremities. Chest wall binder intact. Lungs: breathing comfortably, no accessory muscle use Ext: no gross muscle atrophy, no contractures Neuro: No focal neurologic deficits. Psych: Alert and oriented. Based on my assessment of this patient, this patient meets a high complexity level of care. Postoperative Hypotension and bradycardia likely due to vasovagal response which appears to be resolving: Continue NS at 130 cc/hr. Acute blood loss anemia which is an expected result of surgery Asthma not in acute exacerbation Hypothyroidism: Synthroid 88 mcg PO QD. Breast CA status post bilateral skin sparing mastectomy POD 1 CODE STATUS: FULL CODE DVT Prophylaxis: SCD GI Prophylaxis: Designated medical POA if patient is not able to make medical decisions for themselves: I have reviewed the following loan consultant notes: Surgery I have reviewed the results of the following tests: CBC I have ordered the following tests: I have discussed the care of this patient with the following independent historian: Family I have independently interpreted the following test below: I have discussed the management of this patient with the following physician: Objective - Vital Signs Vital signs: Vital Signs Temp 98.4 F 08/28/24 08:30 Pulse 84 08/28/24 08:30 Resp 16 08/28/24 08:30 BP 100/62 08/28/24 08:30 Pulse Ox 97 08/28/24 08:30 FiO2 Intake & Output 08/27/24 08/28/24 08/28/24 18:59 06:59 18:59 Intake Total 2550 50 Output Total 200 650 470 Balance 2350 -600 -470 Weight 72.7 kg Intake: IV 2550 Oral 50 Output: Drainage 100 20 Left Breast 30 10 Right Breast 70 10 Urine 100 550 450 Uretheral (Tatum) 400 450 Estimated Blood Loss 100 Other: Voiding Method Indwelling Catheter Indwelling Catheter - Labs CBC & Chem 7: 08/28/24 06:17 08/27/24 23:00 Labs: Abnormal Lab Results - Last 24 Hours (Table) 08/27/24 08/27/24 08/27/24 Range/Units 22:23 22:33 23:00 WBC 12.23 H (4.50-10.00) 10*3/uL RBC 3.32 L (4.10-5.20) 10*6/uL Hgb 10.6 L (12.0-15.0) g/dL Hct 31.5 L (37.2-46.3) % Immature Gran # 0.06 H (0.00-0.04) 10*3/uL Neutrophils # 10.95 H (1.80-7.70) 10*3/uL Lymphocytes # 0.74 L (0.90-5.00) 10*3/uL Eosinophils # 0.00 L (0.04-0.35) 10*3/uL Sodium 133 L (137-145) mmol/L Carbon Dioxide 19 L (22-30) mmol/L Glucose 127 H (74-99) mg/dL POC Glucose (mg/dL) 139 H (70-110) mg/dL 08/28/24 Range/Units 06:17 WBC (4.50-10.00) 10*3/uL RBC 3.00 L (4.10-5.20) 10*6/uL Hgb 9.5 L (12.0-15.0) g/dL Hct 28.6 L (37.2-46.3) % Immature Gran # (0.00-0.04) 10*3/uL Neutrophils # (1.80-7.70) 10*3/uL Lymphocytes # (0.90-5.00) 10*3/uL Eosinophils # 0.00 L (0.04-0.35) 10*3/uL Sodium (137-145) mmol/L Carbon Dioxide (22-30) mmol/L Glucose (74-99) mg/dL POC Glucose (mg/dL) (70-110) mg/dL
[2024-08-28] MEDS: HYDROcodone/APAP 5-325MG 1 EACH TAB PO PRN (12:39)
[2024-08-28 13:04] LABS: Basophils # (A) 0.02 10*3/uL (0.00-0.10); Basophils % (A) 0.3 %; Eosinophils # (A) 0.01 10*3/uL (0.04-0.35); Eosinophils % (A) 0.1 %; HCT 30.6 % (37.2-46.3); Lymphocytes # (A) 2.49 10*3/uL (0.90-5.00); Lymphocytes % (A) 32.7 %; MCH 31.6 pg (27.0-32.0); MCHC 32.7 g/dL (32.0-37.0); MCV 96.8 fL (80.0-97.0); Mean Platelet Volume 10.7 fL (9.5-12.2); Monocytes # (A) 0.53 10*3/uL (0.20-1.00); Neutrophils # (A) 4.55 10*3/uL (1.80-7.70); Neutrophils % (A) 59.6 %; Platelet Count 261 10*3/uL (140-440); RBC 3.16 10*6/uL (4.10-5.20); WBC 7.62 10*3/uL (4.50-10.00)
--- NOTE | 2024-08-28 14:22 | P.DS ---
Providers Date of admission: 08-27-24 Expected date of discharge: 08/28/24 Attending physician: Maira Joyce Consults: 08/27/24 22:13 Consult Physician Stat Consulting Provider: Yamila Tsang Consult Reason/Comments: Medical for post op blood pressures Do you want consulting provider notified?: Already Contacted Primary care physician: [facility] Course: Shannan is a 44-year-old female status post bilateral skin-sparing mastectomies on 08-27-2024. Postoperatively she did well but developed what appeared to be a vagal episode after experiencing abdominal discomfort. That is completely resolved and at this time she is doing well, she is tolerating diet without difficulty, her hemoglobin is stable, her pain is under control. Plan - Discharge Summary Discharge Rx Participant: Yes New Discharge Prescriptions: New oxyCODONE HCL [OxyIR] 5 mg PO Q6H PRN 3 Days #20 tab PRN Reason: pain No Action Levothyroxine Sodium [Synthroid] 88 mcg PO DAILY Ibuprofen [Motrin Ib] 400 mg PO BID PRN PRN Reason: Menstrual Cramps Cyanocobalamin [Vitamin B-12] 500 mcg PO MOWEFR Acetaminophen Tab [Tylenol Tab] 1,000 mg PO Q6HR PRN PRN Reason: Pain Discharge Medication List Levothyroxine Sodium [Synthroid] 88 mcg PO DAILY 02/01/19 [History] Ibuprofen [Motrin Ib] 400 mg PO BID PRN 03/27/23 [History] Acetaminophen Tab [Tylenol Tab] 1,000 mg PO Q6HR PRN 03/15/24 [History] Cyanocobalamin [Vitamin B-12] 500 mcg PO MOWEFR 03/15/24 [History] oxyCODONE HCL [OxyIR] 5 mg PO Q6H PRN 3 Days #20 tab 08/27/24 [Rx] Follow up Appointment(s)/Referral(s): Maira Joyce MD [STAFF PHYSICIAN] - 09/05/24 9:00 am Patient Instructions/Handouts: Mastectomy (DC) Activity/Diet/Wound Care/Special Instructions: Teach family drain care Not drive till seen by Dr. Abreu May shower after 48 hours Follow-up Dr. Fletcher on Friday August 30, 2024 Patient should call if she has any questions or concerns Discharge Disposition: HOME SELF-CARE
== END 2024-08-28 14:50 | disposition home or self-care (01) ==
LOC: OR 11:55 → 4FBP 17:48 → OR 08-28 14:50
PROVIDERS: ATTEND Surgery
DX: Z40.01 Encounter for prophylactic removal of breast (principal); Z15.01 Genetic susceptibility to malignant neoplasm of breast; N60.12 Diffuse cystic mastopathy of left breast; N60.11 Diffuse cystic mastopathy of right breast; I95.81 Postprocedural hypotension; I97.191 Other postprocedural cardiac functional disturbances following other surgery; D62 Acute posthemorrhagic anemia; E03.9 Hypothyroidism, unspecified; J45.909 Unspecified asthma, uncomplicated; Z80.3 Family history of malignant neoplasm of breast; Z98.890 Other specified postprocedural states; Z79.890 Hormone replacement therapy; Z80.0 Family history of malignant neoplasm of digestive organs
CPT/HCPCS: 19303; 19357; 15777; 14301 ×2; 93005; 81025; 86900; 86901; 80048; 85025 ×2; 86850; 88307; C1889; J2250; J0330; J1200; J1644 ×2; J1100; J0690 ×3; J2405; J2003; J3010; J0131; J2704; J1171; J2371; J1596

== ENCOUNTER → 2024-09-05 | Outpatient (CLI) | payer OTHER ==
[2024-09-05 09:11] VITALS: BP 115/70; PULSE 71; RESP 16; TEMP 98.6
--- NOTE | 2024-09-05 09:31 | P.BCPO ---
Progress Note - Text Progress Note Date: 09/05/24 Shannan is status post 08-27-24 bilateral skin sparing mastectomy with immediate reconstruction. Pathology revealed benign breast tissue with fibrocystic changes in the right breast and previous biopsy site, in the left breast benign breast tissue with fibrocystic changes. She saw Justine last week and will see him again tomorrow. Examination: Lungs: Clear Heart: Regular rate and rhythm Incisions bilateral clean and dry LUCAS Drains serous in nature, wait for Dr. Estrada to remove Patient called medical oncology Dr. Vargas and told them she had surgery and they did not recommend follow up with them Impression: Patient doing well Plan: Follow-up 4 months for surveillance Post Op Education - Post Op Education Post Op Education Provided Date: 09/05/24 Path Report - Was patient given path report? Path Report Date Given: 09/05/24
== END ==
LOC: WWCWWP 08:58
PROVIDERS: ATTEND Surgery
DX: Z48.89 Encounter for other specified surgical aftercare (principal); Z90.13 Acquired absence of bilateral breasts and nipples; Z98.82 Breast implant status

== ENCOUNTER 2024-11-28 09:12 | Day surgery (SDC) | payer OTHER ==
[~2024-11-28 09:12] MED LIST changes: +HYDROmorphone 0.5 MG/0.5 ML SYRINGE IVP PRN; -LIDOCAINE 1% (10MG/ML) FOR IV START INTRADERMA PRN; -fentaNYL (PF) 50 MCG/ML 2 ML AMP IVP PRN
[2024-11-28] MEDS: IV FLUID CONTINUATION 1,000 ML IV ONE ×2 (09:24→13:16)
[2024-11-28] MEDS: SCOPOLAMINE 1 MG/72 HR PATCH TRANSDERM ONE (09:55)
[2024-11-28] MEDS: DEXAMETHASONE SOD PHOSPHATE 4 MG/ML 1 ML VIAL IV ONE (09:56)
[2024-11-28] MEDS: ONDANSETRON 4 MG/2 ML VIAL IVP ONE (09:56)
[2024-11-28] MEDS: LACTATED RINGERS 1,000 ML IV SCH (09:56)
[2024-11-28] MEDS ORDERED: MIDAZOLAM 2 MG/2 ML VIAL ONE (10:54)
[2024-11-28] MEDS ORDERED: PROPOFOL 10 MG/ML 20 ML VIAL IV ONE (10:54)
[2024-11-28] MEDS ORDERED: fentaNYL (PF) 50 MCG/ML 2 ML AMP ONE (10:54)
[2024-11-28] MEDS ORDERED: ROCURONIUM 10 MG/ML (5 ML VIAL) IV ONE (10:54)
[2024-11-28] MEDS ORDERED: KETOROLAC 15 MG/ML 1 ML VIAL ONE (10:54)
[2024-11-28] MEDS ORDERED: HYDROmorphone (PF) 1 MG/ML ONE (10:54)
[2024-11-28] MEDS ORDERED: SUCCINYLCHOLINE CHLORIDE 200 MG/10 ML VIAL IV ONE (10:54)
[2024-11-28] MEDS ORDERED: LIDOCAINE 1% INJ 10MG/ML (20 ML MDV) ONE (10:54)
[2024-11-28] MEDS: LACTATED RINGERS 1,000 ML IV ONE (12:58)
[2024-11-28 13:23] VITALS: TEMP 97.1
[2024-11-28 14:59] VITALS: BP 107/60; PULSE 51; RESP 18
--- NOTE | 2024-11-28 19:57 | OP ---
OPERATIVE REPORT DATE OF SERVICE : 11/28/2024 PREOPERATIVE DIAGNOSES: 1. 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 2. Personal history of bilateral mastectomy. 3. Acquired deformity right and left reconstructed breast. POSTOPERATIVE DIAGNOSES: 1. 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 2. Personal history of bilateral mastectomy. 3. Acquired deformity of right and left reconstructed breast. OPERATIONS: 1. Replace right breast tissue inside sales executive with silicone breast implant for right breast reconstruction. 2. Revision right reconstructed breast. 3. Replace left breast tissue inside sales executive with silicone breast implant for left breast reconstruction. 4. Revision left reconstructed breast. OPERATIVE INDICATIONS: The patient is a 44-year-old female, who underwent bilateral mastectomy procedure for genetic predisposition to breast cancer with immediate breast reconstruction via a prepectoral tissue inside sales executive placed with reconstructive graft. The patient completed subsequent outpatient expansions without difficulty and is returning to surgery today for 2nd stage of her breast reconstruction, which will include replacement of her tissue expanders with silicone breast implants and revision of the reconstructed breast due to acquired deformities, irregularities and asymmetries from the mastectomy expansion and healing processes. The patient is aware of potential risks, complications of the surgery including, but not limited to hematoma, seroma, wound healing problems, infection, among others. She is also aware she may require additional surgery to obtain a satisfactory and optimal result. She has requested I perform the surgery with full awareness of the risks as stated plus others not mentioned here. She has requested to perform today's surgery. NARRATIVE: The patient was seen in the preoperative area, markings made, procedure reviewed. All questions answered. She was transported to operative room, where she was placed in supine position. Following induction of general anesthesia, the patient was prepped and draped in the usual fashion. The patient's surgery was initiated on the right side first marking the area for incision following the patient's curvilinear scar from the prior mastectomy closure. This area was also marked on the left breast. Using 10 blade scalpel, incision made on the right side, dividing skin full-thickness fashion and cautery used to divide subcutaneous tissue until identifying the graft layer. Skin, subcutaneous tissue flaps were developed off the graft layer giving enough space approximately 2 cm around for division of the graft layer, which was performed vertically, exposing the inside sales executive, inside sales executive was removed intact and discarded. The cavity appeared normal with no granulation tissue, no exudates. The cavity was irrigated. All tissue appeared healthy. The capsular and graft layer was now released medially, inferiorly and inferior laterally to allow optimal space for placement of a breast implant for shape and form. Vertical incisions were then placed along the lower pole of the central breast area to allow some expansion here. This was all completed with cautery. Hemostasis maintained with cautery. The area was irrigated. Hemostasis was optimal. It was packed open with laparotomy sponges. Incision was now made on the left side as diagrammed using a 10 blade scalpel dividing skin full-thickness fashion followed by cauterization by subcutaneous tissue layer, identifying the graft layer. Dissection was performed here, skin subcutaneous tissue from the graft layer approximately 2 cm around the incision made and then a vertical incision made through the graft layer exposing the inside sales executive, inside sales executive was removed intact and discarded. The expansion cavity appeared normal with no granulation tissue, no exudates. The cavity was irrigated. Again, modifications required to optimize positioning of breast implant for shape form and symmetry with the contralateral side. Dissection was performed with cautery the graft expansion layer medially, inferiorly, inferior laterally with vertical incisions along the inferior pole area to optimize expansion of this region for shape of the reconstruction. This was completed with cautery. This was an extensive dissection on both sides to achieve this. Hemostasis maintained with cautery, irrigation was performed. Hemostasis was excellent. Several temporary breast implant sizers were opened on the field. Ultimately, 585 mL Sizer appeared optimal for shape. Informed that the patient was seated up position. Incision was temporary closed with renard. She was returned to supine position. Temporary renard removed. Implant sizers removed. Gloves now changed and breast implants were opened on the field. Both implants were from [employer], reference number [id number]. The serial number for the right side was [id number] and the serial number for the left side was [id number]. The right side was opened first, irrigated with saline and using the Street funnel, no-touch technique passed in the reconstructive cavity. The left-sided implant was then opened, irrigated with saline and again using a Street funnel, no-touch technique, passed in the reconstructive cavity. The capsular layer was now closed over each implant using interrupted short running 3-0 Vicryl sutures on both sides, followed by closure of the superficial dermis and epidermis with inverted interrupted 4-0 Monocryl and then completing the superficial dermal and epidermal closure with running 5-0 Prolene on each side. The surgical field was cleansed with saline dried and postoperative bandages placed using 1 inch paper tape over suture repairs followed by Kerlix gauze that was unfurled, secured with 3 Medipore taped and positioning a size 3 white mammary support. The patient was then awakened from anesthetic and transferred to recovery room in good condition, stable vital signs. The estimated blood loss was 50 mL. There were no complications. MMODL / IJN: [id number] /
== END 2024-11-28 15:10 | disposition home or self-care (01) ==
LOC: OR 09:12 → EDSTATUS 10:30 → OR 15:10
PROVIDERS: ATTEND Plastic Surgery
DX: Z42.1 Encounter for breast reconstruction following mastectomy (principal); Z15.01 Genetic susceptibility to malignant neoplasm of breast; E03.9 Hypothyroidism, unspecified; Z79.890 Hormone replacement therapy; Z80.3 Family history of malignant neoplasm of breast; Z90.13 Acquired absence of bilateral breasts and nipples; J45.909 Unspecified asthma, uncomplicated
CPT/HCPCS: 11970; 19380; J1100; J0690; J2405; 81025